=== PATIENT | female | born 1945 | race Caucasian/White ===

== ENCOUNTER 2023-11-24 07:48 | Outpatient (CLI) | payer MEDICARE, SELFPAY ==
--- NOTE | ~2023-11-24 | MR_ITS ---
EXAMINATION: MR lumbar spine wo con DATE: 11/24/2023 08:36 INDICATION: Spinal stenosis TECHNIQUE: Magnetic resonance imaging (MRI) of the lumbar spine was performed without intravenous con trast. Sequences included sagittal T2-weighted FSE, sagittal T2-weighted FS FSE, sagittal T1-weighted FSE, and axial T2-weighted FSE. COMPARISON: None FINDINGS: Alignment is normal. Vertebral body heights are normal. Heterogeneous red and yellow marrow signal th roughout the visualized bones. Severe disc height loss at L4-L5 and L5-S1. Moderate disc height loss at L2-L3, mild disc height loss at L3-L4 and disc desiccation without significant disc height loss at L2. The conus medullaris terminates at L1-L2. There is normal signal in the caudal spinal cord. Bila teral T2 hyperintense renal cysts the largest on the right measuring 5.3 cm. Paravertebral soft tissu es are unremarkable. The following disc levels are specifically discussed: T12-L1: The disc does not extend beyond the endplate margin. There is moderate bilateral facet joint osteoarthritis. There is no neural foraminal stenosis. There is no central canal stenosis. L1-L2: Disc is mildly bulging with superimposed annular fissure and small right paracentral disc extr usion with disc material extending 5 mm cephalad to the level of the inferior endplate of L1. There i s moderate bilateral facet joint osteoarthritis. There is minimal bilateral neural foraminal stenosis . There is mild central canal stenosis. L2-L3: Disc is bulging with annular fissure. There is hypertrophy of the ligamentum flavum. There is severe bilateral facet joint osteoarthritis. There is left and mild to moderate right neural foramin al stenosis. There is mild to moderate central canal stenosis. L3-L4: Disc is mildly bulging with superimposed annular fissure and left foraminal zone disc protrusi on. There is hypertrophy of the ligamentum flavum. There is severe bilateral facet joint osteoarthrit is. There is mild bilateral, left greater than right neural foraminal stenosis. There is mild central canal stenosis. L4-L5: Disc is bulging with superimposed annular fissure and moderate sized left paracentral disc ext rusion with disc material extending 3 to 4 mm cephalad and caudal to the level of the endplates and n arrowing the left lateral recess exerting mass effect upon the traversing left L5 nerve root. There i s moderate bilateral facet joint osteoarthritis. There is moderate bilateral nral foraminal stenosis. There is mild to moderate left-sided predominant central canal stenosis the disc extrusion narrowing the left lateral recess exerting mass effect upon the traversing left L5 nerve root. L5-S1: Annular fissure with moderate to large disc extrusion with disc material extending up to 6 mm cephalad to the level of the inferior endplate of L5 and extending from the right paracentral region to the left foraminal zone. There is moderate bilateral facet joint osteoarthritis. There is moderate left and mild right neural foraminal stenosis. There is mild central canal stenosis with narrowing o f the left lateral recess. IMPRESSION: 1. Severe lumbar spondylosis. Reviewed, dictated and finalized at location A.
== END 2023-11-24 07:49 | disposition home or self-care (01) ==
PROVIDERS: PCP Family Medicine; Visit Provider Family Medicine
DX: M43.06 Spondylolysis, lumbar region (principal)
CPT/HCPCS: 72148

== ENCOUNTER 2024-07-08 11:15 | Outpatient (CLI) | payer MEDICARE, SELFPAY ==
--- NOTE | ~2024-07-08 | XR_ITS ---
EXAMINATION: XR chest 2V DATE: 07/08/2024 13:14 INDICATION: Hypertension. Preop. Radiculopathy, lumbar region. TECHNIQUE: Frontal and lateral views of the chest were obtained. COMPARISON: None. FINDINGS: There is no pneumonia, pleural effusion, or pneumothorax. The heart size is normal. IMPRESSION: 1. No acute cardiopulmonary disease. Reviewed, dictated and finalized at location A. CONSULTANT
--- NOTE | 2024-07-08 12:03 | ECG_ITS ---
Test Date: 2024-07-08 12:20:11 Measurements Intervals [place] Rate: 64 P: 57 MN: 156 QRS: 32 QRSD: 90 T: 43 QT: 411 QTc: 427 Interpretive Statements SINUS RHYTHM BASELINE WANDER IN LEAD(S) I, III, aVL No previous ECG available for comparison Electronically Signed On 07-08-2024 14:08:29 DIESEL TRAILER MECHANIC by Bill Holden M.D.
--- OUTSIDE RECORDS SUMMARY | 2024-07-08 13:04 | XMS_ITS | Continuity of Care Document ---
Author Organization [facility] Address [address] [place] [address] Phone Care Team Providers Care Raised Printer Name Role Phone Jose Ayers MD Unavailable Unavailable Procedures Procedure Date INJ SPINE LUM/SAC W/ IMAGING GUIDANCE SURGICAL TRAY LOW OSMOLAR CONTRAST (200 TO 299 MG IODI NE) Injection, Triamcinolone Acetonide, 10mg INJ SPINE LUM/SAC W/ IMAGING GUIDANCE Id SURGICAL TRAY LOW OSMOLAR CONTRAST (200 TO 299 MG IODI NE) KENALOG 10 MG INJ SPINE LUM/SAC W/ IMAGING GUIDANCE Id SURGICAL TRAY LOW OSMOLAR CONTRAST (200 TO 299 MG IODI NE) KENALOG 10 MG Advance Directives Directive Yes / No Effective Date File Name No Information Encounters Encounter Description Practice Location Reason(s) For Visit Diagnoses Date Provider Providers Copied on Encounter [facility], [address], [place], [place], [address], [place] tel:[phone] [facility] No Information Andria Garcia. [address], [place], [place], [address], [place]. tel:[phone] Referring Provider: Mehdi Browning DO, [address], [place], [address]. tel:[phone] [facility], [address], [place], [place], [address], tel:[phone] [facility] No Information Jeffrey Garcia. [address], [place], [place], [address], . tel:[phone] Referring Provider: Mehdi Browning DO, [address], [place], [address]. tel:[phone] [facility], [address], [place], [place], [address], tel:[phone] [facility] No Information Nayeli Bhandari. [address], [place], [place], [address], . tel:[phone] Referring Provider: Mehdi Browning DO, [address], [place], [address]. tel:[phone] Family History Family Member Type Diagnosis Age At Onset No Information Payers Payer name Insurance type Covered democrat ID Patel brito(s) MEDICARE MB [id number] NAP Social History Type Description Quantity Date Captured [...]
--- OUTSIDE RECORDS SUMMARY | 2024-07-08 13:04 | XMS_ITS | Continuity of Care Document ---
Author Organization [facility] Address [address] [place] [address] Phone Care Team Providers Care Paper Cap Machine Operator Name Role Phone Mckeon OD, Jose Unavailable Unavailable Advance Directives Directive Yes / No Effective Date File Name No Information Encounters Encounter Description Practice Location Reason(s) For Visit Diagnoses Date Provider Providers Copied on Encounter [facility], [address], [place], [place], [address], [place] tel:[phone] [facility] No Information Apr-0 7-200 4 Mckeon OD Jose. [address] [facility] , [address], [place], [address], [place]. tel:[phone] Family History Family Member Type Diagnosis Age At Onset No Information Payers Payer name Insurance type Covered constitution party ID Authoriza tion(s) [employer] SOI CI [id number] Social History Type Description Quantity Date Captured [...]
[2024-07-08 13:18] LABS: Hematocrit 41.9 % (37.0-47.0); Hemoglobin 13.7 g/dL (12.0-15.0); Mean Corpuscular HGB Conc 32.7 g/dl (32-36); Mean Corpuscular Volume 97.9 fl (80-100); Platelet Count Result 232 k/mm3 (150-375); Red Blood Count 4.28 M/mm3 (4.2-5.4); Red Cell Distribution Width 13.4 % (11.5-14.5); White Blood Count 8.9 K/mm3 (4.5-10.0)
[2024-07-08 13:27] LABS: Prothrombin Time 13.4 Seconds (11.1-14.7)
[2024-07-08 13:28] LABS: Partial Thromboplastin Time 24.7 Seconds (22.3-36.8)
[2024-07-08 13:38] LABS: Add Urine Microscopic? YES; Appearance Urine Clear (Clear); Bacteria Urine None Seen /hpf; Bilirubin Urine Negative (Negative); Blood Urine Negative (Negative); Color Urine Yellow (Yellow); Glucose Urine UA Negative (Negative); Ketones Urine Negative (Negative); Leukocyte Esterase Ur 2+ LEU/UL (Negative); Need Manual Microscopic Reviewed; Nitrate Urine Negative (Negative); Protein Urine Trace mg/dL (Negative); RBC Urine 0-2 /hpf (0-2); Specific Grav Ur 1.017 (1.001-1.035); Squamous Epithelial Cell Urine None Seen /hpf (Few); Urobilinogen Urine 0.2 mg/dL (<2.0); pH Urine 5.5 (5.0-9.0)
[2024-07-08 13:52] LABS: Anion Gap 8 mmol/L (4-12); Blood Urea Nitrogen 17 mg/dL (7-17); Calcium 9.7 mg/dL (8.4-10.2); Carbon Dioxide 28 mmol/L (22-30); Chloride 105 mmol/L (98-107); Estimated Glomerular Filt Rate > 60; Glucose 104 mg/dL (65-110); Potassium 4.4 mmol/L (3.4-5.0); Sodium 141 mmol/L (137-145)
== END 2024-07-08 11:16 | disposition home or self-care (01) ==
PROVIDERS: PCP Family Medicine; Visit Provider Neurological Surgery
DX: Z01.818 Encounter for other preprocedural examination (principal); M54.16 Radiculopathy, lumbar region; I10 Essential (primary) hypertension
CPT/HCPCS: 36415; 71046; 80048; 81001; 85027; 85610; 85730; 87086; 93005

== ENCOUNTER 2024-07-14 00:33 | Day surgery (SDC) | payer MEDICARE, SELFPAY ==
[2024-07-08 11:27] VITALS: BP 137/72; PULSE 72; RESP 16; TEMP 36.9; O2SAT 99; BMI 25.9
--- NOTE | 2024-07-08 11:39 | PC.NURSE ---
Report to the Outpatient Waiting Room, entrance under the green pavilion located off [facility], at time __6:00AM on date ___07/14/24____. Planned Procedure Time: __7:30AM .? Time changes happen often and if your time is changed the preop area will call you the afternoon before. - You and your visitor will be asked to self-screen and do not enter if you have any COVID symptoms. Please call surgeon if you need to reschedule. - A mask is optional within the hospital at this time. Patients may have clear liquids (water, carbonated beverages, clear teas, apple juice) until 3 hours prior to surgery (4:30AM) with a maximum of 20 ounces. - No food from midnight until time of surgery and no smoking, or chewing tobacco (or any form of nicotine). No chewing gum, candy or mints. Take only the following medications with a SIP of water on the morning of surgery: ____ATENOLOL, SERTRALINE. ALPRAZOLAM NEEDED FOR ANXIETY DO NOT STOP ANY OF YOUR OTHER PRESCRIPTION MEDICATIONS PRIOR TO SURGERY EXCEPT THE FOLLOWING Medications to discontinue per physician HOLD NSAIDS(IBUPROFEN) 7 DAYS PRE-OP PER DR BARR Date to take last dose 07/14/24 Please no make-up, nail romansh, hairspray, perfume, deodorant, or body powder the day of surgery.? No jewelry (including any body piercings) or valuables the day of surgery, leave them at home.? Please take a shower or bath the night before, or the morning of, surgery with an antibacterial soap.? Wear comfortable, loose fitting clothing.? - Jewelry must be removed prior to entering the operating room.? Rings and piercings that are not removed may be cut off. - The hospital will not accept responsibility for valuables.? - Please leave all valuables, including medications, at home the day of surgery. If you are going home after surgery, a licensed local driver must drive you home.? - NO public transportation without another adult if you receive anesthesia. - We recommend that an adult stay with you for 24 hours following discharge. - We also recommend that you do not drive, make important decision, drink alcoholic beverages, or take any drugs that were not prescribed by your health care provider for at least 24 hours after your discharge time. Follow any additional instructions given to you from your surgeon. Telephone instructions given to ___PATIENT AND DAUGHTER and asked if any additional questions and then verbalized understanding. Patient advised to call surgeon office or pre surgery nurse liaison [phone] if any additional questions.
[2024-07-14] VITALS (9 sets, daily range): BP systolic 135–169; BP diastolic 53–81; PULSE 71–82; RESP 14–16; TEMP 36.1–36.3; O2SAT 96–100; BMI 25.8
--- NOTE | ~2024-07-14 | XR_ITS ---
INTRAOPERATIVE FLUOROSCOPY: CLINICAL HISTORY: 79 years old Female; LEFT L4-L5 MICRODISCECTOMY PROCEDURE COMMENTS: Limited intraoperative fluoroscopy of the lumbar spine was performed. CUMULATIVE DOSE: 3.95 mGy FLUOROSCOPY TIME: 5.4 seconds FINDINGS/IMPRESSION: Please refer to operative note for further details. Reviewed, dictated and finalized at location A.
--- OUTSIDE RECORDS SUMMARY | 2024-07-14 00:35 | XMS_ITS | Continuity of Care Document ---
Author Organization [facility] Address [address] [place] [address] Phone Care Team Providers Care Mill Supervisor Name Role Phone Mckeon OD, Jose Unavailable Unavailable Advance Directives Directive Yes / No Effective Date File Name No Information Encounters Encounter Description Practice Location Reason(s) For Visit Diagnoses Date Provider Providers Copied on Encounter [facility], [address], [place], [place], [address], [place] tel:[phone] SEC [facility] No Information Apr-0 7-200 4 Mckeon OD Jose. [address] [facility] , [address], [place], [address], [place]. tel:[phone] Family History Family Member Type Diagnosis Age At Onset No Information Payers Payer name Insurance type Covered alliance party ID Authoriza tion(s) [employer] SOI CI [id number] Social History Type Description Quantity Date Captured [...]
--- OUTSIDE RECORDS SUMMARY | 2024-07-14 00:35 | XMS_ITS | Continuity of Care Document ---
Author Organization [facility] Address [address] [place] [address] Phone Care Team Providers Care Dairy Farmworker Name Role Phone Jose Ayers MD Unavailable Unavailable Procedures Procedure Date INJ SPINE LUM/SAC W/ IMAGING GUIDANCE SURGICAL TRAY LOW OSMOLAR CONTRAST (200 TO 299 MG IODI NE) Injection, Triamcinolone Acetonide, 10mg INJ SPINE LUM/SAC W/ IMAGING GUIDANCE Ri SURGICAL TRAY LOW OSMOLAR CONTRAST (200 TO 299 MG IODI NE) KENALOG 10 MG INJ SPINE LUM/SAC W/ IMAGING GUIDANCE Ri SURGICAL TRAY LOW OSMOLAR CONTRAST (200 TO 299 MG IODI NE) KENALOG 10 MG Advance Directives Directive Yes / No Effective Date File Name No Information Encounters Encounter Description Practice Location Reason(s) For Visit Diagnoses Date Provider Providers Copied on Encounter [facility], [address], [place], [place], [address], [place] tel:[phone] [facility] No Information Andria Garcia. [address], [place], [place], [address], [place]. tel:[phone] Referring Provider: Mehdi Browning DO, [address], [place], [address]. tel:[phone] [facility], [address], [place], [place], [address], tel:[phone] [facility] No Information Jeffrey Garcia. [address], [place], [place], [address], . tel:[phone] Referring Provider: Mehdi Browning DO, [address], [place], [address]. tel:[phone] [facility], [address], [place], [place], [address], tel:[phone] [facility] No Information Nayeli Bhandari. [address], [place], [place], [address], . tel:[phone] Referring Provider: Mehdi Browning DO, [address], [place], [address]. tel:[phone] Family History Family Member Type Diagnosis Age At Onset No Information Payers Payer name Insurance type Covered constitution party ID Patel brito(s) MEDICARE MB [id number] NAP Social History Type Description Quantity Date [...]
--- NOTE | 2024-07-14 06:47 | P.PNAN_ITS ---
Anes - Initial Pre Proc Eval Procedure: Operation Date: 07/14/24 07:30 Proposed Procedures p Left L4-L5 Microdiscectomy - Bouchra Ramos MD Date/Time: 07/14/24 06:47 Surgeon: Bouchra Ramos MD Pre Op Diagnosis: left lumbar radiculopathy Patient Data Age: 79 Gender: F Height: 1.73 m Weight: 77.3 kg Last Vital Signs Temp 36.9 C 07/08/24 11:27 Pulse 72 07/08/24 11:27 Resp 16 07/08/24 11:27 BP 137/72 07/08/24 11:27 Pulse Ox 99 07/08/24 11:27 O2 Del Method Room Air 07/08/24 11:27 Allergies Allergy/AdvReac Type Severity Reaction Status Date / Time Sulfa (Sulfonamide Allergy Mild Rash Verified 07/08/24 11:24 Antibiotics) Home Medications ?Medication ?Instructions ?Recorded ?Confirmed ?Type simvastatin 10 mg tablet 10 mg PO DAILY #90 tabs 02/09/24 07/08/24 Rx sertraline 100 mg tablet 100 mg PO DAILY #90 tabs 02/11/24 07/08/24 Rx alprazolam 0.25 mg tablet 0.25 mg PO TID PRN anxiety #90 tabs 05/26/24 07/08/24 Rx atenolol 50 mg tablet See Rx Instructions .Route 06/29/24 07/08/24 Rx .COMPLEX #180 tabs ibuprofen 200 mg tablet (Advil) 400 mg PO Q6H PRN pain 07/08/24 07/08/24 History Patient hx anesthesia problems: none Family hx anesthesia problems: none Results Review: All pre-operative results and documents have been reviewed as part of the pre- operative evaluation. [facility] Past Medical History Medical History Diverticulosis of colon without hemorrhage Sciatica of left side Vaginal atrophy Elevated fasting blood sugar Abdominal adhesions Essential (primary) hypertension Mixed hyperlipidemia Anticipatory anxiety Anxiety Normal cystoscopy Occult blood in stools Panic attacks Hematuria Fibromyalgia Surgical History Surgical History History of cataract surgery History of appendectomy Hx of tonsillectomy History of bilateral tubal ligation H/O: hysterectomy Family History Family History Sibling Family history of kidney disease Hypertension Family history of elevated blood lipids Family history of cardiovascular disease Father Family history of cardiovascular disease Malignant neoplasm of prostate Family history of coronary artery disease Heart disease Mother Depression Sibling Cancer Heart disease Dementia Social History Social History Smoking status: Never smoker Alcohol intake: never Substance use: never Substance use type: does not use Do You Feel Safe in your Home?: Yes Lack of Transportation: No Lack of Food: Never True Current Housing: I Have Housing Concerned About Future Housing: No Difficulty Paying Gas/Electric Bills: No Difficulty Paying for Meds: No Currently Unemployed: No Education: Decline to Answer Difficulty w/ Childcare or Family Care: No Anes - Eval Final PreProcedure Day of Procedure 07/14/24 06:47 Patient weight: overweight Heart: regular rate and rhythm Lungs: clear to auscultation Airway: Mallampati scale class II Neurological: alert and oriented Last oral intake: >/= 8 hours ASA classification: III Emergent: no Anesthetic plan: proceed Anesthesia type and monitoring: general ETT and standard monitoring Results Review: All pre-operative results and documents have been reviewed as part of the pre- operative evaluation. Informed Consent: The patient's anesthetic plan and its attendant risks and benefits were discussed with the patient/family/POA. Questions were solicited and answers provided to the satisfaction of the patient/family/POA.
--- NOTE | 2024-07-14 07:16 | WPDHPUPDATE1 ---
History and Physical Update Update Date/Time: 07/14/24 07:16 History and Physical has been reviewed, including an updated exam of the patient. There are NO changes in the patient's condition. Risks, benefits, and alternatives have been discussed and questions answered. Patient agrees to proceed with procedure.
[2024-07-14] MEDS: ceFAZolin 2 GM/D5W 50 ML 2 GM/50 ML BAG IVPB (07:27)
[2024-07-14] MEDS: LACTATED RINGERS 1,000 ML 30 ML IV CONT ×2 (07:44→09:17)
[2024-07-14] MEDS: LIDO 1%/EPINEPHRINE 1:100,000 20 ML VIAL 10 ML INFILTRATE (08:01)
--- NOTE | 2024-07-14 09:26 | P.OP_ITS ---
Procedure Note - Detailed Date of Procedure 07/14/24 Pre-op Diagnosis left lumbar radiculopathy Post-op Diagnosis Same Procedure Performed 1. Left L4-5 microdiskectomy 2. Use of microscope for microsurgical dissection 3. Use of C-arm for fluoroscopy Surgeon Bouchra Ramos MD Financial Report Service Sales Agent Tatyana Anesthesia General Description of Procedure The patient was brought to the operating room, and general anesthesia was induced. The patient was placed prone on the Raymundo frame, and all pressure p oints were padded. Compression devices were placed on the patient's calves. The C-arm was brought onto the field to localize the appropriate disc space and assist with incisional planning. The area was prepped and draped in usual sterile fashion. A time out was conducted, and pre-operative antibiotics were administered. Local anesthesia was injected into the planned incision. A skin incision was made with a 10-blade scalpel, and dissection was carried down with the monopolar cautery to open the fascia. The left lamina of L4 was exposed with the bovie. An upgoing curette was placed under the lamina, and the C-arm was brought in to confirm the correct level. A self-retaining retractor was placed. The currette was used to clear the space under the lamina. A high- speed drill was used to thin the lamina to the ligamentum flavum. A currette was used to separate the lamina from the ligament, and more bone was removed with a kerrison. A 4-penfield was used to separate the dura from the disc space, and a calcified disc bulge was noted under the traversing nerve root. The dura was retracted medially, and a nerve hook was used to maguire the posterior longitudinal ligament to break up the disc herniation. A micropituitary was used to remove small pieces of calcified disc. A nerve hook and Reyes currette were alternately used to break up small pieces of calcified disc which were removed with a micropituitary. The ventral space under the nerve root appeared well decompressed. Hemostasis was achieved with the bovie, Surgiflo, and cottonoid patties. The area was copiously irrigated. No evidence of CSF leak was noted. The fascia was closed with 0-Vicryl in an interrupted fashion. The soft tissue was again copiously irrigated. The dermis was closed with 2-0 interrupted Vicryl. The skin was closed with 3-0 Vicryl then subcuticular monocryl. Dermabond was placed over the incision. The patient was returned supine on the stretcher, extubated, and transferred to PACU without incident. Billing codes: 25534, 05049 Estimated Blood Loss 10 Drains No Packing No Pathology None sent Complications None Condition Stable Disposition PACU [facility] Billing Surgery - Charge Forward: Surgery Billing
--- NOTE | 2024-07-14 09:36 | SUR.PHASEI ---
0935 - dr. hudson at bedside. assessing pt's neuro assessment. neuro assessment wnl
== END 2024-07-14 11:21 | disposition home or self-care (01) ==
PROVIDERS: PCP Family Medicine; Visit Provider Neurological Surgery
PROC: (CPT 63005; principal; 2024-07-14 07:30)
DX: M54.16 Radiculopathy, lumbar region (principal); I10 Essential (primary) hypertension; E78.2 Mixed hyperlipidemia; F41.9 Anxiety disorder, unspecified; F41.0 Panic disorder [episodic paroxysmal anxiety]; Z79.1 Long term (current) use of non-steroidal anti-inflammatories (NSAID); Z98.890 Other specified postprocedural states; Z98.51 Tubal ligation status; Z87.19 Personal history of other diseases of the digestive system; Z80.42 Family history of malignant neoplasm of prostate; Z82.49 Family history of ischemic heart disease and other diseases of the circulatory system
CPT/HCPCS: 63030; 99199; J0690; J1100; J1171; J2003; J2004; J2371; J2405; J2704; J3010; J7120

== ENCOUNTER 2024-12-30 09:58 | Outpatient (CLI) | payer MEDICARE, SELFPAY ==
[2024-12-30 11:06] LABS: Hematocrit 42.0 % (37.0-47.0); Hemoglobin 13.9 g/dL (12.0-15.0); Immature Granulocyte Percent A 0.4 % (0-0.5); Lymphocytes Absolute Auto 2.98 K/mm3 (0.9-3.2); Mean Corpuscular HGB Conc 33.1 g/dl (32-36); Mean Corpuscular Hemoglobin 31.2 pg (26-34); Mean Corpuscular Volume 94.4 fl (80-100); Nucleated Red Blood Cells Absolute Auto 0.000 K/mm3 (0.0-0.012); Nucleated Red Blood Cells Perc 0.0 % (0.0-0.2); Platelet Count Result 222 k/mm3 (150-375); Red Blood Count 4.45 M/mm3 (4.2-5.4); White Blood Count 8.3 K/mm3 (4.5-10.0)
[2024-12-30 11:20] LABS: Hemoglobin A1C 5.5 % (<5.7)
[2024-12-30 11:21] LABS: INR 1.0; Prothrombin Time 13.2 Seconds (11.1-14.7)
[2024-12-30 11:22] LABS: Partial Thromboplastin Time 26.1 Seconds (22.3-36.8)
[2024-12-30 11:31] LABS: Albumin Level 4.2 g/dL (3.5-5.1); Anion Gap 7 mmol/L (4-12); Blood Urea Nitrogen 21 mg/dL (7-17); Calcium 10.0 mg/dL (8.4-10.2); Carbon Dioxide 28 mmol/L (22-30); Chloride 105 mmol/L (98-107); Estimated Glomerular Filt Rate 54; Glucose 86 mg/dL (65-110); Potassium 4.4 mmol/L (3.4-5.0); Sodium 140 mmol/L (137-145)
== END 2024-12-30 09:59 | disposition home or self-care (01) ==
PROVIDERS: Anesthesiology; PCP Family Medicine; Visit Provider Orthopaedic Surgery
DX: M16.12 Unilateral primary osteoarthritis, left hip (principal); N18.9 Chronic kidney disease, unspecified; Z01.818 Encounter for other preprocedural examination
CPT/HCPCS: 36415; 80048; 80307; 82040; 83036; 85025; 85610; 85730; 87081

== ENCOUNTER 2025-01-17 01:17 | Day surgery (SDC) | payer MEDICARE, MEDICAID, SELFPAY ==
[2024-12-30 10:13] VITALS: BP 136/68; PULSE 68; RESP 16; TEMP 36.7; O2SAT 98; BMI 25.4
--- NOTE | 2024-12-30 10:31 | PC.NURSE ---
Report to the Outpatient Waiting Room, entrance under the green pavilion located off [facility], at time __06:00am on date _01/17/25 . Planned Procedure Time: _0730am .? Time changes happen often and if your time is changed the preop area will call you the afternoon before. - You and your visitor will be asked to self-screen and do not enter if you have any COVID symptoms. Please call surgeon if you need to reschedule. - A mask is optional within the hospital at this time. Patients may have clear liquids (water, carbonated beverages, clear teas, apple juice) until 3 hours prior to surgery with a maximum of 20 ounces. - No food from midnight until time of surgery and no smoking, or chewing tobacco (or any form of nicotine). No chewing gum, candy or mints. (04:30am) Take only the following medications with a SIP of water on the morning of surgery: ____Altenolol and Sertraline Tyelenol if needed DO NOT STOP ANY OF YOUR OTHER PRESCRIPTION MEDICATIONS PRIOR TO SURGERY EXCEPT THE FOLLOWING Hold all vitamins and supplements for 3 days per anesthesiologist. Medications to discontinue per physician NONE Date to take last dose NONE Please no make-up, nail cymro, hairspray, perfume, deodorant, or body powder the day of surgery.? No jewelry (including any body piercings) or valuables the day of surgery, leave them at home.? Please take a shower or bath the night before, or the morning of, surgery with an antibacterial soap.? Wear comfortable, loose fitting clothing. HIBICLEANSE scrub per Dr Logan. ? Children are encouraged to wear pajamas. - Jewelry must be removed prior to entering the operating room.? Rings and piercings that are not removed may be cut off. - The hospital will not accept responsibility for valuables.? - Please leave all valuables, including medications, at home the day of surgery. If you are going home after surgery, a licensed dump truck driver must drive you home.? - NO public transportation without another adult if you receive anesthesia. - We recommend that an adult stay with you for 24 hours following discharge. - We also recommend that you do not drive, make important decision, drink alcoholic beverages, or take any drugs that were not prescribed by your health care provider for at least 24 hours after your discharge time. Follow any additional instructions given to you from your surgeon. Telephone instructions given to ___Patient and asked if any additional questions and then verbalized understanding. Patient advised to call surgeon office or pre surgery nurse liaison [phone] if any additional questions.
--- NOTE | 2025-01-16 19:36 | P.HP_ITS ---
H&P: HPI History of Present Illness Date/Time: 01/16/25 19:36 Chief Complaint: left hip pain due to severe advanced osteoarthritis Narrative: patient presents for left total hip replacement. I reviewed her medications and reminded her she will need to stop the ibuprofen 7 days before surgery. She does have a prescription for alprazolam but has not taken long time I recommend that she avoid this and I discussed with her that we will not want her to take that after surgery because when combined with a narcotic it can depress breathing and cause overdose and . Physical examination On examination today she is a very pleasant female in no acute distress. She is younger in appearance than her stated age. Her BMI is 25.9. She walks with a moderate limp without her cane a mild limp with her cane. Patient is able to walk on her toes and heels with some assistance for balance. Walking a few steps in the office today she did not have significant pain. patient is here with her daughter today. She had strong 2+ knee jerk reflexes bilaterally and ankle jerk reflexes bilaterally and 1 beat of ankle clonus bilaterally. She has dependent rubor in both legs but has 2+ dorsalis pedis and posterior tibial artery pulses palpable on the left. She had 5 5 muscle strength in all muscle groups of the left lower extremity except mild weakness in abduction of the left hip in the side-lying position which was associated with moderate pain. She had normal light touch sensation in the left lower extremity including the great toe. There is no lower extremity edema and the skin looked healthy in the lower extremity and around the hip and groin area. There was however a 6 mm diameter eschar mid anterior left lea from where she sustained an abrasion a few weeks ago. Flexion of the left hip is to 95? with moderate thigh pain internal rotation left hip 20? with moderate thigh pain external rotation 35? with moderate thigh pain. Stinchfield maneuver exhibited moderate thigh pain. Her greater trochanter was nontender. She had moderate tenderness in the cheek of buttock and over the posterior superior iliac spine SI joint area. While lying supine the left leg appears about half an inch shorter than the right. Her previous x-rays again show advanced osteoarthritis left hip. She has moderately severe joint space narrowing of the right hip but her right hip fortunately is not bothering her. Patient has reviewed the Ortho info handout on total hip replacement as well as the direct anterior approach booklet. I discussed postoperative recovery with her in detail. I have discussed risks of surgery with her in detail. She states that her teeth are stable and she does not have any pending dental work that needs to be done or infections around her teeth. She has no history of blood clots personally or in her family. I explained that there will be numbness around the incision. We discussed the risk of infection and my recommendation that she take antibiotics before dental work for at least the next 2 years and then as needed if any invasive dental work were necessary or if she developed infection somewhere else. Risk of blood clots was explained. I discussed my preference for using Eliquis for 5 weeks after surgery. Risk of fracture dislocation leg length discrepancy component wear need for revision surgery discussed. Risk of transfusion discussed. Risk of heterotopic ossification was explained. She has history of allergy to sulfa antibiotics so we would use 7.5 mg meloxicam for 10 days after surgery to help minimize risk of heterotopic ossification forming. Risk of nerve injury explained. Risk of medical complications such as heart attack stroke pulmonary embolism and were reviewed. All of their questions were answered. FORMERLY [facility], [facility] Past Medical History Medical History Diverticulosis of colon without hemorrhage Sciatica of left side Vaginal atrophy Elevated fasting blood sugar Abdominal adhesions Essential (primary) hypertension Mixed hyperlipidemia Anticipatory anxiety Anxiety Normal cystoscopy Occult blood in stools Panic attacks Hematuria Fibromyalgia Surgical History Surgical History History of microdiscectomy History of cataract surgery History of appendectomy Hx of tonsillectomy History of bilateral tubal ligation H/O: hysterectomy Family History Family History Sibling Family history of kidney disease Hypertension Family history of elevated blood lipids Family history of cardiovascular disease Father Family history of cardiovascular disease Malignant neoplasm of prostate Family history of coronary artery disease Heart disease Mother Depression Sibling Cancer Heart disease Dementia Social History Social History Smoking status: Never smoker Second hand tobacco smoke exposure: Yes Alcohol intake: never Substance use: never Substance use type: does not use Do You Feel Safe in your Home?: Yes Lack of Transportation: No Lack of Food: Never True Current Housing: I Have Housing Concerned About Future Housing: No Difficulty Paying Gas/Electric Bills: No Difficulty Paying for Meds: No Currently Unemployed: No Education: Decline to Answer Difficulty w/ Childcare or Family Care: No Living arrangements: with family Additional living arrangements comments: Daughter Spiritual care concerns: No Meds Home Medications and Allergies Home Medications ?Medication ?Instructions ?Recorded ?Confirmed ?Type simvastatin 10 mg tablet 10 mg PO DAILY #90 tabs 10/0 11/2512/30/24 Rx alprazolam 0.25 mg tablet 0.25 mg PO TID PRN anxiety # 90 tabs 05/26/24 12/30/24 Rx sertraline 100 mg tablet 100 mg PO DAILY #90 tabs 12/30/24 Rx atenolol 50 mg tablet See Rx Instructions .Route 0 12/15/24 12/30/24 Rx .COMPLEX #180 tabs Allergies Allergy/AdvReac Type Severity Reaction Status Date / Time Sulfa (Sulfonamide Allergy Mild Rash Verified 12/30/24 10:11 Antibiotics) Assessment and Plan Assessment and plan (1) Primary osteoarthritis of left hip: Code(s): M16.12 - Unilateral primary osteoarthritis, left hip Status: Acute
[2025-01-17] VITALS (14 sets, daily range): BP systolic 93–181; BP diastolic 41–93; PULSE 63–91; RESP 13–25; TEMP 35.7–36.9; O2SAT 97–100
--- NOTE | ~2025-01-17 | XR_ITS ---
EXAMINATION: XR surgery orthopedic DATE: 01/17/2025 11:13 INDICATION: Anterior approach left total hip arthroplasty TECHNIQUE: Single frontal fluoroscopic image of the left hip was obtained during procedure performed by Dr. Logan. Radiologist was not present for the imaging or procedure. The amount of fluoroscopy time used during this procedure was 0.9 minutes. Total DAP was 0.287 mGym^2. COMPARISON: None. FINDINGS: Noncemented left total hip arthroplasty which appears well seated in near- anatomic alignment. No fracture. Lucent soft tissue gas about the left hip. IMPRESSION: 1. Fluoroscopy utilized during left total hip arthroplasty which appears well seated in near-anatomic alignment. Reviewed, dictated and finalized at location A. IMPRESSION: 1. Fluoroscopy utilized during left total hip arthroplasty which appears well s eated in near-anatomic alignment.
--- NOTE | ~2025-01-17 | XR_ITS ---
EXAM/ PROCEDURE: XR hip LT 1V w AP pelvis - 01/17/2025 11:20 CDT HISTORY: 79 years old Female with POST OP LEFT RONAN ANTERIOR APPROACH COMPARISON: None available TECHNIQUE: Two view(s) FINDINGS/ IMPRESSION: There are no fractures or dislocations.Joint space narrowing, subchondral sclerosis, subchondral cyst formation and osteophyte formation, compatible with moderate osteoarthritis. Left hip arthroplasty. Intact hardware and no loosening. Reviewed, dictated and finalized at location N.
[2025-01-17] MEDS: ACETAMINOPHEN 500 MG TABLET 1000 MG PO (06:45)
[2025-01-17] MEDS: LACTATED RINGERS 1,000 ML 30 ML IV CONT ×3 (06:50→11:32)
[2025-01-17] MEDS: TRANEXAMIC ACID 1,000MG/ISO100 1,000 MG/100 ML BAG 200 MG IVPB (06:55)
[2025-01-17] MEDS: VANCOMYCIN 1,250 MG/NS 250 ML 1,250 MG/250 ML BAG 166.67 MG IVPB (06:57)
--- NOTE | 2025-01-17 07:05 | P.PNAN_ITS ---
Anes - Initial Pre Proc Eval Procedure: Operation Date: 01/17/25 07:30 Proposed Procedures p Left Total Hip Arthroplasty, Anterior Approach - Zion Logan MD Date/Time: 01/17/25 07:05 Surgeon: Zion Logan MD Pre Op Diagnosis: Arthritis Left Hip Patient Data Age: 79 Gender: F Height: 1.73 m Weight: 76 kg Last Vital Signs Temp 36.7 C 12/30/24 10:13 Pulse 68 12/30/24 10:13 Resp 16 12/30/24 10:13 BP 136/68 12/30/24 10:13 Pulse Ox 98 12/30/24 10:13 O2 Del Method Room Air 12/30/24 10:13 Allergies Allergy/AdvReac Type Severity Reaction Status Date / Time Sulfa (Sulfonamide Allergy Mild Rash Verified 01/17/25 07:05 Antibiotics) Home Medications ?Medication ?Instructions ?Recorded ?Confirmed ?Type simvastatin 10 mg tablet 10 mg PO DAILY #90 tabs 10/0 11/2512/30/24 Rx alprazolam 0.25 mg tablet 0.25 mg PO TID PRN anxiety # 90 tabs 05/26/24 12/30/24 Rx sertraline 100 mg tablet 100 mg PO DAILY #90 tabs 12/30/24 Rx atenolol 50 mg tablet See Rx Instructions .Route 0 12/15/24 12/30/24 Rx .COMPLEX #180 tabs Laboratory Tests 01/17/25 06:54 Blood Type Pending Antibody Screen Pending Patient hx anesthesia problems: none Family hx anesthesia problems: none Results Review: All pre-operative results and documents have been reviewed as part of the pre- operative evaluation. [facility] Past Medical History Medical History Diverticulosis of colon without hemorrhage Sciatica of left side Vaginal atrophy Elevated fasting blood sugar Abdominal adhesions Essential (primary) hypertension Mixed hyperlipidemia Anticipatory anxiety Anxiety Normal cystoscopy Occult blood in stools Panic attacks Hematuria Fibromyalgia Surgical History Surgical History History of microdiscectomy History of cataract surgery History of appendectomy Hx of tonsillectomy History of bilateral tubal ligation H/O: hysterectomy Family History Family History Sibling Family history of kidney disease Hypertension Family history of elevated blood lipids Family history of cardiovascular disease Father Family history of cardiovascular disease Malignant neoplasm of prostate Family history of coronary artery disease Heart disease Mother Depression Sibling Cancer Heart disease Dementia Social History Social History Smoking status: Never smoker Alcohol intake: never Substance use: never Substance use type: does not use Do You Feel Safe in your Home?: Yes Lack of Transportation: No Lack of Food: Never True Current Housing: I Have Housing Concerned About Future Housing: No Difficulty Paying Gas/Electric Bills: No Difficulty Paying for Meds: No Currently Unemployed: No Education: Decline to Answer Difficulty w/ Childcare or Family Care: No Living arrangements: with family Additional living arrangements comments: DAUGHTER-AMIE Spiritual care concerns: No Anes - Eval Final PreProcedure Day of Procedure 01/17/25 07:05 Patient weight: normal Heart: regular rate and rhythm Lungs: clear to auscultation Airway: Mallampati scale class II Neurological: alert and oriented Last oral intake: >/= 8 hours ASA classification: III Emergent: no Anesthetic plan: proceed Anesthesia type and monitoring: general ETT and standard monitoring Results Review: All pre-operative results and documents have been reviewed as part of the pre- operative evaluation. Informed Consent: The patient's anesthetic plan and its attendant risks and benefits were discussed with the patient/family/POA. Questions were solicited and answers provided to the satisfaction of the patient/family/POA.
--- NOTE | 2025-01-17 07:16 | WPDHPUPDATE1 ---
History and Physical Update Update Date/Time: 01/17/25 07:16 History and Physical has been reviewed, including an updated exam of the patient. There are NO changes in the patient's condition. Risks, benefits, and alternatives have been discussed and questions answered. Patient agrees to proceed with procedure.
[2025-01-17] MEDS: ceFAZolin 2 GM in SODIUM CHLORIDE 0.9% IV 50 ML 100 ML IVPB ×3 (07:30→21:41)
[2025-01-17] MEDS: SODIUM CHLORIDE 0.9% IV 37.7 ML, MORPHINE SULFATE INJ (*CRX) 2 MG, ROPivacaine HCL 1% 2... INFILTRATE (08:21)
[2025-01-17] MEDS: TRANEXAMIC ACID 1,000 MG/10 ML AMPUL 1000 MG IV PUSH (10:20)
--- NOTE | 2025-01-17 11:03 | W.PM.PROC2 ---
Procedure Note - Detailed Date of Procedure 01/17/25 Pre-op Diagnosis Arthritis Left Hip Post-op Diagnosis Same Procedure Performed Left total hip replacement Surgeon Zion Logan MD Tile Trimmer Armaan Little Anesthesia General Description of Procedure Patient was brought to the operating room and general anesthesia was administered. She received 2 g of Ancef weight based vancomycin 1 g of TXA preoperatively. Boots were applied to the feet after padding was applied the feet and SCDs applied the calves and running during the procedure. Briseno catheter was placed. She was transferred to the [facility] and the left hip was prepped draped usual fashion. A 10 cm longitudinal incision was made starting 3 cm lateral 1 cm distal to the ASIS. Dissection was carried down to the fascia over the tensor fascia lisset which was exposed and longitudinally incised. Interval between TFL and rectus femoris developed and crossing branches of ascending lateral femoral circumflex vessels were ligated with suture divided. Inverted T capsulotomy was performed. Femoral neck osteotomy performed according to preoperative templating. Femoral head was removed. It measured 51 mm in diameter peripherally. There were large surrounding femoral osteophytes. Acetabulum was exposed. Fractured posterior superior and posterior femoral osteophytes were removed. Large anterior superior osteophyte remained and was partially trimmed. He under fluoroscopic guidance the acetabulum was prepared. We reamed with the 44 mm Reamer to close the medial wall of the acetabulum. Reaming went up to 51 mm which gave appropriate peripheral contact. A light reaming with the 52 Reamer was performed and we chose the 52 pinnacle cup which was impacted at 40? of abduction and the appropriate anteversion. Full seating was achieved with excellent Press-Fit single screw placed in the ilium. Thirty-six inner diameter liner was placed. Bone quality seemed very good. Additional anterior and anterior superior and posterior inferior osteophyte were removed. Table hook was placed and the leg externally rotated and extended exposing the proximal femur. The interval between conjoined tendon and piriformis was incised which allowed the piriformis to flip. It the femur was broached to a size 7 Actis broach which achieved torsional stability. Trialing was performed. We could only reduce the hip with a -2 head. It was tight with no Shuck whatsoever was difficult to dislocate again with the bone hook. Intraoperative x-ray showed that with this construct we were still about 2- 3 mm shorter than the other side. We confirmed that complete anterior capsular release had been performed for the femur. I felt this construct with BM comfort tight for her. We countersunk the broach another 2.5 mm with this we had a little bit of play in shock in a more appropriate feel. We confirmed that the broach had torsional stability we calcar planed and impacted the size 7 Actis standard offset stem. On trialing the 1.5 was too tight the size -2 head had appropriate soft tissue tension and excellent stability. The-2 x 36 mm cobalt chromium stainless steel head was impacted on the clean and dried trunnion without difficulty. The hip was reduced and stability reconfirmed. Intraoperative x-ray under fluoro showed no radiographic complication. The capsule was reapproximated with 2. Vicryl. Local anesthetic cocktail was injected in the periarticular soft tissues. She received additional 2 g of Ancef and 1 g of TXA. Fascia was reapproximated with running 1. Vicryl drain placed deep in the subcutaneous layer the skin closed with 2 subcutaneous Vicryl and glue. EBL was 500 cc and she received 225 back as Cell Saver blood. During the procedure there was a fair amount of bleeding from the acetabular bone which stopped after placement of the polyethylene liner wound was quite dry time wound closure. Bone quality seemed very good in the femur we will allow her to be weight-bearing as tolerated postoperatively.
[2025-01-17] MEDS: ONDANSETRON INJ 4 MG/2 ML VIAL IV PUSH ×2 (11:32→14:28)
--- NOTE | 2025-01-17 12:58 | ADMGEN ---
This patient, Halima Degroot, was admitted to 3 [facility] Surg Room 315-01. Patient/family oriented to hospital policies and general routines including ID bracelet, bed and alarms, visiting hours, pain management, procedures, bathroom and other care routines, personal items, smoking policy, room service/diet, and visiting hours. Information on how to activate the Rapid Response Team has been discussed. Patient/Family are encouraged to report perceived risks to care and to ask questions if they do not understand what they are told or what they should do.
[2025-01-17] MEDS: SODIUM CHLORIDE 0.9% IV 1,000 ML 125 ML IV CONT (14:59)
[2025-01-17] MEDS: ACETAMINOPHEN 325 MG TABLET 650 MG PO ×2 (15:10→18:58)
[2025-01-17] MEDS: oxyCODONE HCL (*CRX) 2.5 MG TAB IR PO (15:10)
--- NOTE | 2025-01-17 15:13 | P.CONIM_ITS ---
Assessment and Plan Assessment and plan (1) Primary osteoarthritis of left hip: Code(s): M16.12 - Unilateral primary osteoarthritis, left hip Status: Acute Assessment and Plan: Left total hip by Orthopedics on 01/17/2025 Pain management by Orthopedics Brian Postsixto antibiotics (2) Essential (primary) hypertension: Code(s): I10 - Essential (primary) hypertension Status: Acute Assessment and Plan: Hydralazine and labetalol p.r.n. (3) Mixed hyperlipidemia: Code(s): E78.2 - Mixed hyperlipidemia Status: Acute Assessment and Plan: Continue statin (4) Anxiety: Code(s): F41.9 - Anxiety disorder, unspecified Status: Acute Assessment and Plan: Xanax held by Orthopedics HPI Date of Consult Consult date: 01/17/25 Requesting Physician: Zion Logan MD Primary Care Provider: Mehdi Garcia MD Consult Narrative Reason for consult: Medical management Narrative: Halima Degroot is a 79 year old female past medical history fibromyalgia, anxiety, hypertension and hyperlipidemia left hip osteoarthritis presents the hospital for planned total left hip replacement by Orthopedics. Patient seen after OR. Patient states that she a little bit of postop nausea and vomiting however that has resolved since then. Patient has been upset bathroom. And pain is well controlled. Patient has no complaints at this time. Review of Systems Review of Systems: 12 systems were reviewed and are negativ e except for as per HPI. PMFSH Past Medical History Medical History (Updated 01/17/25 @ 18:43 by Vanessa Guzmán, ASH) Diverticulosis of colon without hemorrhage Sciatica of left side Vaginal atrophy Elevated fasting blood sugar Abdominal adhesions Essential (primary) hypertension Mixed hyperlipidemia Anticipatory anxiety Anxiety Normal cystoscopy Occult blood in stools Panic attacks Hematuria Fibromyalgia Surgical History Surgical History History of microdiscectomy History of cataract surgery History of appendectomy Hx of tonsillectomy History of bilateral tubal ligation H/O: hysterectomy Family History Family History Sibling Family history of kidney disease Hypertension Family history of elevated blood lipids Family history of cardiovascular disease Father Family history of cardiovascular disease Malignant neoplasm of prostate Family history of coronary artery disease Heart disease Mother Depression Sibling Cancer Heart disease Dementia Social History Social History Smoking status: Never smoker Second hand tobacco smoke exposure: Yes Alcohol intake: never Substance use: never Substance use type: does not use Do You Feel Safe in your Home?: Yes Lack of Transportation: No Lack of Food: Never True Current Housing: I Have Housing Concerned About Future Housing: No Difficulty Paying Gas/Electric Bills: No Difficulty Paying for Meds: No Currently Unemployed: No Education: Decline to Answer Difficulty w/ Childcare or Family Care: No Living arrangements: with family Additional living arrangements comments: DAUGHTER-AMIE Spiritual care concerns: No Meds Home Medications and Allergies Home Medications ?Medication ?Instructions ?Recorded ?Confirmed ?Type simvastatin 10 mg tablet 10 mg PO DAILY #90 tabs 10/0 11/2501/17/25 Rx alprazolam 0.25 mg tablet 0.25 mg PO TID PRN anxiety # 90 tabs 05/26/24 12/30/24 Rx sertraline 100 mg tablet 100 mg PO DAILY #90 tabs 01/17/25 Rx atenolol 50 mg tablet See Rx Instructions .Route 0 12/15/24 01/17/25 Rx .COMPLEX #180 tabs Allergies Allergy/AdvReac Type Severity Reaction Status Date / Time Sulfa (Sulfonamide Allergy Mild Rash Verified 01/17/25 07:05 Antibiotics) Vital Signs Vital Signs - 24 hr 01/17/25 06:15 01/17/25 11:04 01/17/25 11:15 Temperature 97.3 F L 97.1 F L Pulse Rate 85 80 76 Respiratory Rate 18 25 H 16 Blood Pressure 177/93 H 181/88 H 180/84 H Pulse Oximetry 98 100 100 Oxygen Delivery Room Air Simple Face Mask Simple Face Mask Oxygen Flow Rate 8 8 01/17/25 11:30 01/17/25 11:45 01/17/25 12:00 Temperature Pulse Rate 74 91 83 Respiratory Rate 14 18 17 Blood Pressure 175/79 H 181/87 H 172/72 H Pulse Oximetry 100 100 97 Oxygen Delivery Simple Face Mask Room Air Room Air Oxygen Flow Rate 8 01/17/25 12:01 01/17/25 12:15 01/17/25 13:05 Temperature 96.3 F L Pulse Rate 82 80 73 Respiratory Rate 13 16 Blood Pressure 140/69 121/52 L Pulse Oximetry 98 97 Oxygen Delivery Room Air Oxygen Flow Rate 01/17/25 13:20 01/17/25 13:50 01/17/25 14:08 Temperature 96.4 F L 96.9 F L Pulse Rate 73 63 Respiratory Rate 16 18 Blood Pressure 104/49 L 113/50 L Pulse Oximetry 99 98 Oxygen Delivery Room Air Oxygen Flow Rate 01/17/25 14:38 01/17/25 14:50 Temperature 97.7 F Pulse Rate 73 Respiratory Rate 18 Blood Pressure 93/56 L Pulse Oximetry 97 Oxygen Delivery Room Air Oxygen Flow Rate Exam Narrative: General: well appearing, appears stated age. HEENT: normocephalic, atraumatic. Mucous membranes moist. EOMI, PERRLA, bilateral sclera anicteric, no conjunctival injection. Neck supple without JVD, lymphadenopathy, or bruit. Respiratory: clear to ascultation bilaterally. No rales/rhonic/wheezes. Cardiovascular: Regular rate and rhythm, normal S1-S2 upon ascultation. No murmurs, rubs, or clicks. PMI is nondisplaced, capillary refill less than 3 second. Abdomen: Soft, round, no pulsatile masses, nondistended and nontender. No rebound, no guarding. No CVA tenderness, no hepatosplenomegaly. Bowel sounds present to all four quadrants. No high pitch or tinkling sounds, resonant to percussion. Extremities: No cyanosis, clubbing, or edema present. Pulses are palpable 2/2. Left hip dressing clean dry intact Neuro: Alert and orientated x 4. PERRLA. Cranial nerves 2-12 intact without focal deficit. Skin: Warm, dry, and intact, without rash, erythema, or lesion. Psych: pleasant, cooperative, normal speech, normal affect, no hallucinations, no dysarthia Quality VTE Prophylaxis VTE prophylaxis: mechanical ordered and pharmacologic ordered Hospitalist [facility] Advance Care Plan I have confirmed that the patient's Advanced Care Plan is present, code status is documented, or surrogate decision maker is listed in patient medical record.: Yes Medication Reconciliation I have utilized all available resources to obtain, update and review the patients current medications (includes all prescriptions, OTC, herbals, cannabis, and nutritional supplements).: Yes
[2025-01-17] MEDS: IBUPROFEN IV 400 MG in SODIUM CHLORIDE 0.9% IV 100 ML 208 MG IVPB (17:22)
[2025-01-17] MEDS: SENNA/DOCUSATE SODIUM TABLET 2 TAB PO (17:36)
[2025-01-17] MEDS: VANCOMYCIN HCL 1,000 MG in SODIUM CHLORIDE 0.9% IV 250 ML 250 MG IVPB (18:56)
[2025-01-17] MEDS: MICONAZOLE NITRATE 2% CREAM 30 GM TUBE 1 APPLIC TOPICAL (20:01)
[2025-01-17] MEDS: DOXYCYCLINE HYCLATE 100 MG TABLET PO (20:01)
[2025-01-17] MEDS: MORPHINE SULFATE (*CRX) 2 MG/ML INJ IV PUSH (23:41)
[2025-01-18 01:21] VITALS: BP 123/49; PULSE 87; RESP 16; TEMP 36.6; O2SAT 97
[2025-01-18] MEDS: ACETAMINOPHEN 325 MG TABLET 650 MG PO ×3 (04:49→12:59)
[2025-01-18 04:54] VITALS: BP 137/57; PULSE 91; RESP 16; TEMP 36.8; O2SAT 95
[2025-01-18] MEDS: ceFAZolin 2 GM in SODIUM CHLORIDE 0.9% IV 50 ML 100 ML IVPB (05:00)
[2025-01-18 05:44] LABS: Hematocrit 30.7 % (37.0-47.0); Hemoglobin 9.8 g/dL (12.0-15.0); Immature Granulocyte Percent A 0.6 % (0-0.5); Lymphocytes Absolute Auto 2.65 K/mm3 (0.9-3.2); Mean Corpuscular HGB Conc 31.9 g/dl (32-36); Mean Corpuscular Hemoglobin 30.9 pg (26-34); Mean Corpuscular Volume 96.8 fl (80-100); Nucleated Red Blood Cells Absolute Auto 0.000 K/mm3 (0.0-0.012); Nucleated Red Blood Cells Perc 0.0 % (0.0-0.2); Platelet Count Result 175 k/mm3 (150-375); Red Blood Count 3.17 M/mm3 (4.2-5.4); White Blood Count 14.3 K/mm3 (4.5-10.0)
[2025-01-18] MEDS: oxyCODONE HCL (*CRX) 2.5 MG TAB IR PO ×3 (05:50→12:59)
[2025-01-18 06:06] LABS: Anion Gap 6 mmol/L (4-12); Blood Urea Nitrogen 22 mg/dL (7-17); Calcium 8.9 mg/dL (8.4-10.2); Carbon Dioxide 23 mmol/L (22-30); Chloride 106 mmol/L (98-107); Estimated CRCL calculation 39 ml/min; Estimated Glomerular Filt Rate 50; Glucose 99 mg/dL (65-110); Potassium 4.4 mmol/L (3.4-5.0); Sodium 135 mmol/L (137-145)
[2025-01-18] MEDS: VANCOMYCIN HCL 1,000 MG in SODIUM CHLORIDE 0.9% IV 250 ML 250 MG IVPB (06:20)
[2025-01-18 09:25] VITALS: PULSE 98
[2025-01-18] MEDS: SENNA/DOCUSATE SODIUM TABLET 2 TAB PO (09:25)
[2025-01-18] MEDS: DOXYCYCLINE HYCLATE 100 MG TABLET PO (09:26)
[2025-01-18] MEDS: MELOXICAM 7.5 MG TABLET PO (09:26)
[2025-01-18] MEDS: APIXABAN 2.5 MG TABLET PO (09:26)
[2025-01-18] MEDS: SERTRALINE HCL 50 MG TABLET 100 MG PO (09:26)
[2025-01-18] MEDS: SIMVASTATIN 10 MG TABLET PO (09:26)
[2025-01-18 09:30] VITALS: PULSE 98; O2SAT 96
[2025-01-18] MEDS: dexAMETHasone SOD PHOS INJ 10 MG/ML 1 ML VIAL IV PUSH (09:32)
--- NOTE | 2025-01-18 11:26 | PM.IMCN ---
HPI Date of Consult Consult date: 01/18/25 Requesting Physician: Zion Logan MD Primary Care Provider: Mehdi Garcia MD Consult Narrative Narrative: Halima Degroot is a 79 year old female with history of hypertension, hyperlipidemia and left hip pain secondary to osteoarthritis [facility] Past Medical History Medical History (Updated 01/17/25 @ 18:43 by Vanessa Guzmán, ASH) Diverticulosis of colon without hemorrhage Sciatica of left side Vaginal atrophy Elevated fasting blood sugar Abdominal adhesions Essential (primary) hypertension Mixed hyperlipidemia Anticipatory anxiety Anxiety Normal cystoscopy Occult blood in stools Panic attacks Hematuria Fibromyalgia Surgical History Surgical History History of microdiscectomy History of cataract surgery History of appendectomy Hx of tonsillectomy History of bilateral tubal ligation H/O: hysterectomy Family History Family History Sibling Family history of kidney disease Hypertension Family history of elevated blood lipids Family history of cardiovascular disease Father Family history of cardiovascular disease Malignant neoplasm of prostate Family history of coronary artery disease Heart disease Mother Depression Sibling Cancer Heart disease Dementia Social History Social History Smoking status: Never smoker Second hand tobacco smoke exposure: Yes Alcohol intake: never Substance use: never Substance use type: does not use Do You Feel Safe in your Home?: Yes Lack of Transportation: No Lack of Food: Never True Current Housing: I Have Housing Concerned About Future Housing: No Difficulty Paying Gas/Electric Bills: No Difficulty Paying for Meds: No Currently Unemployed: No Education: Decline to Answer Difficulty w/ Childcare or Family Care: No Living arrangements: with family Additional living arrangements comments: DAUGHTER-AMIE Spiritual care concerns: No Meds Home Medications and Allergies Home Medications ?Medication ?Instructions ?Recorded ?Confirmed ?Type simvastatin 10 mg tablet 10 mg PO DAILY #90 tabs 02/09/24 01/17/25 Rx alprazolam 0.25 mg tablet 0.25 mg PO TID PRN anxiety #90 tabs 05/26/24 12/30/24 Rx sertraline 100 mg tablet 100 mg PO DAILY #90 tabs 07/30/24 01/17/25 Rx atenolol 50 mg tablet See Rx Instructions .Route 12/15/24 01/17/25 Rx .COMPLEX #180 tabs Allergies Allergy/AdvReac Type Severity Reaction Status Date / Time Sulfa (Sulfonamide Allergy Mild Rash Verified 01/17/25 07:05 Antibiotics) Vital Signs Vital Signs - 24 hr 01/17/25 11:30 01/17/25 11:45 01/17/25 12:00 Temperature Pulse Rate 74 91 83 Respiratory Rate 14 18 17 Blood Pressure 175/79 H 181/87 H 172/72 H Pulse Oximetry 100 100 97 Oxygen Delivery Simple Face Mask Room Air Room Air Oxygen Flow Rate 8 01/17/25 12:01 01/17/25 12:15 01/17/25 13:00 Temperature Pulse Rate 82 80 Respiratory Rate 13 Blood Pressure 140/69 Pulse Oximetry 98 Oxygen Delivery Room Air Room Air Oxygen Flow Rate 01/17/25 13:05 01/17/25 13:20 01/17/25 13:50 Temperature 96.3 F L 96.4 F L 96.9 F L Pulse Rate 73 73 63 Respiratory Rate 16 16 18 Blood Pressure 121/52 L 104/49 L 113/50 L Pulse Oximetry 97 99 98 Oxygen Delivery Oxygen Flow Rate 01/17/25 14:08 01/17/25 14:38 01/17/25 14:50 Temperature 97.7 F Pulse Rate 73 Respiratory Rate 18 Blood Pressure 93/56 L Pulse Oximetry 97 Oxygen Delivery Room Air Room Air Oxygen Flow Rate 01/17/25 17:38 01/17/25 17:38 01/17/25 21:08 Temperature 98.4 F Pulse Rate 66 69 Respiratory Rate 16 Blood Pressure 105/41 L 113/53 L Pulse Oximetry 97 Oxygen Delivery Oxygen Flow Rate 01/18/25 01:21 01/18/25 04:54 01/18/25 09:25 Temperature 97.8 F 98.2 F Pulse Rate 87 91 98 Respiratory Rate 16 16 Blood Pressure 123/49 L 137/57 L Pulse Oximetry 97 95 Oxygen Delivery Oxygen Flow Rate Results Labs 01/18/25 05:28 01/18/25 05:28 Labs: Short CBC 01/18/25 Range/Units 05:28 WBC 14.3 H (4.5-10.0) K/mm3 Hgb 9.8 L D (12.0-15.0) g/dL Hct 30.7 L (37.0-47.0) % Plt Count 175 (150-375) k/mm3 [facility] 01/18/25 05:28 Sodium 135 L Potassium 4.4 Chloride 106 Carbon Dioxide 23 BUN 22 H Creatinine 1.06 H Glucose 99 Calcium 8.9
--- NOTE | 2025-01-18 11:35 | P.PNIM_ITS ---
Progress Note: A&P Assessment and Plan (1) Primary osteoarthritis of left hip: Code(s): M16.12 - Unilateral primary osteoarthritis, left hip Status: Acute Assessment and Plan: Left total hip by Orthopedics on 01/17/2025 * Pain management by Orthopedics * Eliquis DVT prophylaxis 2.5 mg b.i.d. * PT/OT * Incentive spirometer * Weight-bearing status per Ortho (2) Essential (primary) hypertension: Code(s): I10 - Essential (primary) hypertension Status: Chronic Assessment and Plan: * Continued patient's atenolol * Monitor BP per unit protocol (3) Mixed hyperlipidemia: Code(s): E78.2 - Mixed hyperlipidemia Status: Chronic Assessment and Plan: * Continue patient's statin (4) Anxiety: Code(s): F41.9 - Anxiety disorder, unspecified Status: Acute Assessment and Plan: * Xanax held by Orthopedics * Continue sertraline Plan Patient followed as consult for any medical management patient with no new complaints or needs at this time likely will discharge to home following her 2nd physical therapy if pain controlled will sign off at this time if you need any further management please free to re-consult. Time Spent With Patient Time with patient: 15 - 25 minutes Subjective Date/time seen: 01/18/25 11:35 Interval history: 01/18/2025: Patient evaluated in bed just worked with physical therapy and did report some [id number] pain plan for follow-up physical therapy after lunch. Patient denied any chest pain, shortness a breath, nausea, vomiting states he only had nausea post surgery which has sided. Patient with no other complaints. Review of Systems Review of Systems: 12 systems were reviewed and are negativ e except for as per HPI. All systems reviewed & are unremarkable except as noted in HPI and below Exam Narrative: General: well appearing, appears stated age. HEENT: normocephalic, atraumatic. Mucous membranes moist Respiratory: clear to auscultation bilaterally. Cardiovascular: RRR Abdomen: Soft bowel sounds in all 4 quadrants Extremities: No cyanosis, clubbing, or edema present. Pulses are palpable 2/2. Left hip dressing clean dry intact Neuro: Alert and orientated x 4. Skin: Warm, dry, and intact Psych: pleasant, cooperative Objective Data Vital Signs Vital Signs: Vital Signs - 24 hr 01/17/25 11:45 01/17/25 12:00 01/17/25 12:01 Temperature Pulse Rate 91 83 82 Respiratory Rate 18 17 Blood Pressure 181/87 H 172/72 H Pulse Oximetry 100 97 Oxygen Delivery Room Air Room Air 01/17/25 12:15 01/17/25 13:00 01/17/25 13:05 Temperature 96.3 F L Pulse Rate 80 73 Respiratory Rate 13 16 Blood Pressure 140/69 121/52 L Pulse Oximetry 98 97 Oxygen Delivery Room Air Room Air 01/17/25 13:20 01/17/25 13:50 01/17/25 14:08 Temperature 96.4 F L 96.9 F L Pulse Rate 73 63 Respiratory Rate 16 18 Blood Pressure 104/49 L 113/50 L Pulse Oximetry 99 98 Oxygen Delivery Room Air 01/17/25 14:38 01/17/25 14:50 01/17/25 17:38 Temperature 97.7 F Pulse Rate 73 66 Respiratory Rate 18 Blood Pressure 93/56 L Pulse Oximetry 97 Oxygen Delivery Room Air 01/17/25 17:38 01/17/25 21:08 01/18/25 01:21 Temperature 98.4 F 97.8 F Pulse Rate 69 87 Respiratory Rate 16 16 Blood Pressure 105/41 L 113/53 L 123/49 L Pulse Oximetry 97 97 Oxygen Delivery 01/18/25 04:54 01/18/25 09:25 Temperature 98.2 F Pulse Rate 91 98 Respiratory Rate 16 Blood Pressure 137/57 L Pulse Oximetry 95 Oxygen Delivery Intake/Output Intake/Output: Intake & Output 01/15/25 01/16/25 01/17/25 01/18/25 23:59 23:59 23:59 23:59 Intake Total 1244 590 Output Total 200 80 Balance 1044 510 Meds/Results Medications: Active Medications Generic Name Dose Route Start Last Admin Trade Name Freq PRN Reason Stop Dose Admin Acetaminophen 650 mg 01/17/25 13:00 01/18/25 09:25 Acetaminophen 325 Mg Tablet PO 650 mg Q4HR ESTEPHANIA Administration Apixaban 2.5 mg 01/18/25 09:00 01/18/25 09:26 Apixaban 2.5 Mg Tablet PO 2.5 mg Q12HR [facility]EPH[facility]IA Administration Atenolol 0 mg 01/17/25 17:00 01/18/25 09:25 Atenolol 50 Mg Tablet PO 50 mg BID ESTEPHANIA Administration Doxycycline Hyclate 100 mg 01/17/25 21:00 01/18/25 09:26 Doxycycline Hyclate 100 Mg Tablet PO 01/30/25 20:59 100 mg Q12HR ESTEPHANIA Administration Meloxicam 7.5 mg 01/18/25 08:00 01/18/25 09:26 Meloxicam 7.5 Mg Tablet PO 7.5 mg DAILY@0800 [facility] Administration Miconazole Nitrate 1 applic 01/17/25 09:00 01/17/25 20:01 Miconazole Nitrate 2% Cream 30 Gm Tube TOPICAL 1 applic Q12HR [facility]EPHANIA Administration Morphine Sulfate 2 mg 01/17/25 12:31 01/17/25 23:41 Morphine Sulfate (*Crx) 2 Mg/Ml Inj IV PUSH 2 mg Q1H PRN Administration Pain Rated 7-10 Naloxone HCl 0.1 mg 01/17/25 12:31 Naloxone Hcl 0.4 Mg/Ml Vial IV PUSH Q2M PRN Opiate Reversal Ondansetron HCl 4 mg 01/17/25 12:31 01/17/25 14:28 Ondansetron Inj 4 Mg/2 Ml Vial IV PUSH 4 mg Q4H PRN Administration Nausea And Vomiting Oxycodone HCl 2.5 mg 01/17/25 12:31 01/18/25 05:50 Oxycodone Hcl (*Crx) 2.5 Mg Tab Ir PO 2.5 mg Q4H PRN Administration Pain Rated 4-10 Oxycodone HCl 2.5 mg 01/18/25 09:00 01/18/25 09:26 Oxycodone Hcl (*Crx) 2.5 Mg Tab Ir PO 2.5 mg Q4H ESTEPHANIA Administration Polyethylene Glycol 17 gm 01/18/25 09:00 01/18/25 09:30 Polyethylene Glycol 3350 17 Gm Powd.Pack PO Not Given QAM ESTEPHANIA Senna/Docusate Sodium 2 tab 01/17/25 17:00 01/18/25 09:25 Senna/Docusate Sodium Tablet PO 2 tab BID ESTEPHANIA Administration Sertraline HCl 100 mg 01/18/25 09:00 01/18/25 09:26 Sertraline Hcl 50 Mg Tablet PO 100 mg DAILY ESTEPH[place]IA Administration Simvastatin 10 mg 01/18/25 09:00 01/18/25 09:26 Simvastatin 10 Mg Tablet PO 10 mg DAILY ESTEPHANIA Administration Radiology Results: ITS Impressions Intraoperative X-Ray 01/18/25 08:48 IMPRESSION: 1. Fluoroscopy utilized during left total hip arthroplasty which appears well seated in near-anatomic alignment. Labs Labs: Laboratory Results - last 24 hr 01/18/25 01/18/25 05:28 07:52 WBC 14.3 H RBC 3.17 L Hgb 9.8 L D Hct 30.7 L MCV 96.8 MCH 30.9 MCHC 31.9 L RDW 13.6 Plt Count 175 MPV 10.7 H Immature Gran % (Auto) 0.6 H Neut % (Auto) 71.3 Lymph % (Auto) 18.5 [place] % (Auto) 9.4 H Eos % (Auto) 0.0 Baso % (Auto) 0.2 Lymph # (Auto) 2.65 [place] # (Auto) 1.4 H Eos # (Auto) 0.0 Baso # (Auto) 0.0 Abs Immat Gran (auto) 0.09 H Absolute Neuts (auto) 10.2 H Absolute Nucleated RBC 0.000 Nucleated RBC % 0.0 Sodium 135 L Potassium 4.4 Chloride 106 Carbon Dioxide 23 Anion Gap 6 BUN 22 H Creatinine 1.06 H Estim Creat Clear Calc 39 Estimated GFR 50 L Glucose 99 POC Capillary Glucose 109 H Calcium 8.9 Quality VTE Prophylaxis VTE prophylaxis: mechanical ordered and pharmacologic ordered -Patient's previous records reviewed on admission -ER notes reviewed in detail on admission -discussed all findings and current treatment plan with patient/Family/POA -Consultations reviewed for recommendations -Patient's disposition for safe discharge discussed with special education case manager Dictation performed by [employer] direct speech recognition software, therefore retoucher photoengraving variants and typographical errors may occur. Hospitalist MIPS Advance Care Plan I have confirmed that the patient's Advanced Care Plan is present, code status is documented, or surrogate decision maker is listed in patient medical record.: Yes Medication Reconciliation I have utilized all available resources to obtain, update and review the patients current medications (includes all prescriptions, OTC, herbals, cannabis, and nutritional supplements).: Yes The patient is not eligible for med reconciliation; the patient is in a emergent medical situation where delaying treatment would jeopardize the patients health.: No
[2025-01-18] MEDS: MICONAZOLE NITRATE 2% CREAM 30 GM TUBE 1 APPLIC TOPICAL (12:59)
[2025-01-18 14:16] VITALS: BP 133/45; PULSE 83; RESP 18; TEMP 36; O2SAT 96
--- NOTE | 2025-01-18 15:35 | PM.PNORT ---
Progress Note: A&P Assessment and Plan (1) Status post total hip replacement, left: Code(s): Z96.642 - Presence of left artificial hip joint Status: Acute Assessment and Plan: Patient is doing much better this afternoon. Her pain is nicely controlled she feels she would be safe to go home today would like to be discharged. Early this morning at 8:00 a.m. she was having a fair amount of pain in bed. Factors contributing to that would include not moving all night and sleeping supine which is not used to sleeping, having the block wore off and she has had very little narcotic over the night due to concerns of severe nausea which she suffered with last evening. She had just taken a 2.5 mg oxycodone at that time. She does have a history of severe nausea with Vicodin. I have explained her that the nausea is generally dose dependent and is also very helpful to take narcotics with some food on the stomach. An empty stomach causes increased nausea symptoms. She had no leg swelling her wound is dry and intact she has intact sensation motor function left leg. She is alert and oriented. Laboratories show hemoglobin 9.8 representing mild acute blood loss anemia. Sodium minimally decreased at 135. Creatinine 1.06 with a GFR of 50. This is very similar to her preop GFR of 54. Preop creatinine was 1.0. Patient is weight-bearing as tolerated and will be discharged today as discussed. Subjective Subjective Date/Time Seen: 01/18/25 15:35 Objective Data Vital Signs Vital Signs: Vital Signs - 24 hr 01/17/25 17:38 01/17/25 17:38 01/17/25 21:08 Temperature 36.9 C Pulse Rate 66 69 Respiratory Rate 16 Blood Pressure 105/41 L 113/53 L Pulse Oximetry 97 Oxygen Delivery 01/18/25 01:21 01/18/25 04:54 01/18/25 09:25 Temperature 36.6 C 36.8 C Pulse Rate 87 91 98 Respiratory Rate 16 16 Blood Pressure 123/49 L 137/57 L Pulse Oximetry 97 95 Oxygen Delivery 01/18/25 09:30 01/18/25 14:16 Temperature 36.0 C L Pulse Rate 98 83 Respiratory Rate 18 Blood Pressure 133/45 L Pulse Oximetry 96 96 Oxygen Delivery Room Air Intake/Output Intake/Output: Intake & Output 01/15/25 01/16/25 01/17/2516/25 23:59 23:59 23:59 23:59 Intake Total 9314 830 Output Total 200 80 Balance 1044 750 Meds/Results Medications: Active Medications Generic Name Dose Route Start Last Admin Trade Name Freq PRN Reason Stop Dose Admin Acetaminophen 650 mg 01/17/25 13:00 01/18/25 12:59 Acetaminophen 325 Mg Tablet PO 650 mg Q4HR ESTEPHANIA Administration Apixaban 2.5 mg 01/18/25 09:00 01/18/25 09:26 Apixaban 2.5 Mg Tablet PO 2.5 mg Q12HR [place]EPH[place] Administration Atenolol 0 mg 01/17/25 17:00 01/18/25 09:25 Atenolol 50 Mg Tablet PO 50 mg BID ESTEPH[place]IA Administration Doxycycline Hyclate 100 mg 01/17/25 21:00 01/18/25 09:26 Doxycycline Hyclate 100 Mg Tablet PO 01/30/25 20:59 100 mg Q12HR [facility]EPH[place]IA Administration Meloxicam 7.5 mg 01/18/25 08:00 01/18/25 09:26 Meloxicam 7.5 Mg Tablet PO 7.5 mg DAILY@0800 [facility] Administration Miconazole Nitrate 1 applic 01/17/25 09:00 01/18/25 12:59 Miconazole Nitrate 2% Cream 30 Gm Tube TOPICAL 1 applic Q12HR [facility] Administration Morphine Sulfate 2 mg 01/17/25 12:31 01/17/25 23:41 Morphine Sulfate (*Crx) 2 Mg/Ml Inj IV PUSH 2 mg Q1H PRN Administration Pain Rated 7-10 Naloxone HCl 0.1 mg 01/17/25 12:31 Naloxone Hcl 0.4 Mg/Ml Vial IV PUSH Q2M PRN Opiate Reversal Ondansetron HCl 4 mg 01/17/25 12:31 01/17/25 14:28 Ondansetron Inj 4 Mg/2 Ml Vial IV PUSH 4 mg Q4H PRN Administration Nausea And Vomiting Oxycodone HCl 2.5 mg 01/17/25 12:31 01/18/25 05:50 Oxycodone Hcl (*Crx) 2.5 Mg Tab Ir PO 2.5 mg Q4H PRN Administration Pain Rated 4-10 Oxycodone HCl 2.5 mg 01/18/25 09:00 01/18/25 12:59 Oxycodone Hcl (*Crx) 2.5 Mg Tab Ir PO 2.5 mg Q4H [facility]EPH[place]IA Administration Polyethylene Glycol 17 gm 01/18/25 09:00 01/18/25 09:30 Polyethylene Glycol 3350 17 Gm Powd.Pack PO Not Given QAM [facility]EPH[place] Senna/Docusate Sodium 2 tab 01/17/25 17:00 01/18/25 09:25 Senna/Docusate Sodium Tablet PO 2 tab BID [facility]EPH[place] Administration Sertraline HCl 100 mg 01/18/25 09:00 01/18/25 09:26 Sertraline Hcl 50 Mg Tablet PO 100 mg DAILY [facility] Administration Simvastatin 10 mg 01/18/25 09:00 01/18/25 09:26 Simvastatin 10 Mg Tablet PO 10 mg DAILY ESTEPH[place]IA Administration Radiology Results: ITS Impressions Intraoperative X-Ray 01/18/25 08:48 IMPRESSION: 1. Fluoroscopy utilized during left total hip arthroplasty which appears well seated in near-anatomic alignment. Labs Labs: Laboratory Results - last 24 hr 01/18/25 01/18/25 05:28 07:52 WBC 14.3 H RBC 3.17 L Hgb 9.8 L D Hct 30.7 L MCV 96.8 MCH 30.9 MCHC 31.9 L RDW 13.6 Plt Count 175 MPV 10.7 H Immature Gran % (Auto) 0.6 H Neut % (Auto) 71.3 Lymph % (Auto) 18.5 [place] % (Auto) 9.4 H Eos % (Auto) 0.0 Baso % (Auto) 0.2 Lymph # (Auto) 2.65 [place] # (Auto) 1.4 H Eos # (Auto) 0.0 Baso # (Auto) 0.0 Abs Immat Gran (auto) 0.09 H Absolute Neuts (auto) 10.2 H Absolute Nucleated RBC 0.000 Nucleated RBC % 0.0 Sodium 135 L Potassium 4.4 Chloride 106 Carbon Dioxide 23 Anion Gap 6 BUN 22 H Creatinine 1.06 H Estim Creat Clear Calc 39 Estimated GFR 50 L Glucose 99 POC Capillary Glucose 109 H Calcium 8.9
== END 2025-01-18 17:10 | disposition home or self-care (01) ==
LOC: ANHSURGERY 06:01 → ANH3MEDSUR 12:41
PROVIDERS: PCP Family Medicine; Visit Provider Orthopaedic Surgery
PROC: (CPT 27130; principal; 2025-01-17 07:30)
DX: M16.12 Unilateral primary osteoarthritis, left hip (principal); M25.752 Osteophyte, left hip; I10 Essential (primary) hypertension; E78.2 Mixed hyperlipidemia; F41.8 Other specified anxiety disorders; M79.7 Fibromyalgia; F41.0 Panic disorder [episodic paroxysmal anxiety]; Z98.890 Other specified postprocedural states; Z98.51 Tubal ligation status; Z87.19 Personal history of other diseases of the digestive system; Z80.42 Family history of malignant neoplasm of prostate; Z82.49 Family history of ischemic heart disease and other diseases of the circulatory system
CPT/HCPCS: 27130; 36415; 73501; 80048; 82948; 85025; 86850; 86900; 86901; 97110; 97116; 97161; 97166; 97530; 97535; 99199; J0690; A9270; C1776; J0166; J0360; J1100; J1171; J1200; J1741; J1885; J2003; J2270; J2371; J2405; J2704; J2795; J3010; J3373; J7030; J7050; J7120

== ENCOUNTER 2025-03-11 15:23 | Emergency (ER) | payer MEDICARE, MEDICAID, SELFPAY ==
--- OUTSIDE RECORDS SUMMARY | 2003-08-10 07:15 | XMS_ITS | Continuity of Care Document ---
Author Organization [facility] Address [address] [place] [address] Phone Care Team Providers Care Outreach Specialist Name Role Phone Mckeon OD, Jose Unavailable Unavailable Advance Directives Directive Yes / No Effective Date File Name No Information Encounters Encounter Description Practice Location Reason(s) For Visit Diagnoses Date Provider Providers Copied on Encounter [facility], [address], [place], [place], [id number], [place] tel:[phone] SEC [facility] No Information Apr-0 7-200 4 Mckeon OD Jose. [address] [facility] , [address], [place], [address], [place]. tel:[phone] Family History Family Member Type Diagnosis Age At Onset No Information Payers Payer name Insurance type Covered democrat ID Authoriza tion(s) [employer] SOI CI [id number] Social History Type Description Quantity Date Captured Comments Sex Female Smoking Status No Information Chief Complaint And Reason For Visit No Information Reason For Referral Reason For Referral No Information History Of Present Illness Encounter Date Complaint History Of Prese nt Illness No Information Functional Status Date Functional Assessmen t No Information Instructions Date Instruction Additional Infor mation No Information Assessments Type Assessment Date No Information Patient Care Teams Name Effective Dates (start - stop) Status Members No Information
--- NOTE | ~2025-03-11 | CT_ITS ---
EXAMINATION: CT abdomen pelvis w con DATE: 03/11/2025 19:10 INDICATION: Left lower quadrant pain. Recent constipation. TECHNIQUE: Computed tomography (CT) of the abdomen and pelvis was performed with 100 cc Omnipaque 350 intravenous contrast. The dose-length product was 340.79 mGy-cm. Automated exposure control and iterative reconstruction technique were employed. COMPARISON: None. FINDINGS: Lung bases unremarkable. Heart size normal. Small hiatal hernia. No significant pleural or pericardial effusion. There is a left total hip arthroplasty. Nonobstructive bowel gas pattern. Colonic diverticulosis without evidence for diverticulitis. Status post appendectomy. Fatty infiltration of the liver. The spleen, pancreas, adrenal glands are unremarkable. There are bilateral renal cysts. There is a 3.6 cm cyst lateral aspect of the left kidney. Just lateral to this there is an intermediate density 1.3 cm mass measuring 28 Hounsfield units. IMPRESSION: 1. Intermediate density left renal mass contiguous with a cyst at the lower pole. Correlation with ultrasound recommended on nonemergent basis. 2: No acute abnormality of the abdomen or pelvis. Reviewed, dictated and finalized at location O. STRY FIRE AIDE IMPRESSION: 1. Intermediate density left renal mass contiguous with a cyst at the lower caleb e. Correlation with ultrasound recommended on nonemergent basis. 2: No acute abnormality of the abdomen or pelvis.
[2025-03-11 15:29] VITALS: BP 156/90; PULSE 86; RESP 16; TEMP 36.6; O2SAT 98
--- NOTE | 2025-03-11 17:24 | ED.ABDPAIN ---
HPI - Abdominal Pain General Chief Complaint: Abdominal Pain <KEELY Del Rio Last Filed: 03/11/25 17:33> Stated Complaint: abd pain <KEELY Del Rio Last Filed: 03/11/25 17:33> Time Seen by Provider: 03/11/25 17:25 <KEELY Del Rio Last Filed: 03/11/25 17:33> Focused HPI: Patient is a 79-year-old female who presents the ED with report of left lower abdominal pain. Patient reports having pain throughout her left upper abdomen for the past few weeks. She saw her PCP for this and discussed possible constipation/diverticulitis. Was told to take stool softeners and was Rx'd azithromycin. Patient finished the abx but c/o persistent pain. Pain worse with laying flat or laying on her side. Also reports abdominal bloating. Has been having regular BMs. Denies rectal bleeding, melena. Denies N/V, fevers, urinary complaints. Patient is 2 months post op L hip replacement by Dr. Logan. GENERAL: Well-appearing, well-nourished, and in no acute distress. HEAD: Normocephalic, atraumatic. CHEST: Clear to auscultation. ?No respiratory distress. HEART: Regular rate and rhythm.? ABD: No significant focal TTP. Normoactive BS NEURO: ?Alert and oriented x3. Patient screened in triage and initial orders placed.? ?Additional care and disposition to be based upon?diagnostic testing and treatment. <KEELY Del Rio Last Filed: 03/11/25 17:33> Source: patient <KEELY Del Rio Last Filed: 03/11/25 17:33> Mode of arrival: ambulatory <KEELY Del Rio Last Filed: 03/11/25 17:33> Limitations: no limitations <KEELY Del Rio Last Filed: 03/11/25 17:33> Related Data Allergies/Adverse Reactions: Allergies Allergy/AdvReac Type Severity Reaction Status Date / Time Sulfa (Sulfonamide Allergy Mild Rash Verified 03/11/25 15:24 Antibiotics) <Vi Boyer PA-C - Last Filed: 03/11/25 17:33> [facility] Past Medical History Medical History: Medical History Diverticulosis of colon without hemorrhage Sciatica of left side Vaginal atrophy Elevated fasting blood sugar Abdominal adhesions Essential (primary) hypertension Mixed hyperlipidemia Anticipatory anxiety Anxiety Normal cystoscopy Occult blood in stools Panic attacks Hematuria Fibromyalgia <KEELY Del Rio Last Filed: 03/11/25 17:33> Surgical History Surgical History: Surgical History History of microdiscectomy History of cataract surgery History of appendectomy Hx of tonsillectomy History of bilateral tubal ligation H/O: hysterectomy <KEELY Del Rio Last Filed: 03/11/25 17:33> Family History Family History: Family History Sibling Family history of kidney disease Hypertension Family history of elevated blood lipids Family history of cardiovascular disease Father Family history of cardiovascular disease Malignant neoplasm of prostate Family history of coronary artery disease Heart disease Mother Depression Sibling Cancer Heart disease Dementia <KEELY Del Rio Last Filed: 03/11/25 17:33> Social History Social History: Social History Second hand tobacco smoke exposure: Yes Alcohol intake: never Substance use: never Substance use type: does not use Do You Feel Safe in your Home?: Yes Lack of Transportation: No Lack of Food: Never True Current Housing: I Have Housing Concerned About Future Housing: No Difficulty Paying Gas/Electric Bills: No Difficulty Paying for Meds: No Currently Unemployed: No Education: Decline to Answer Difficulty w/ Childcare or Family Care: No Living arrangements: with family Additional living arrangements comments: DAUGHTER-AMIE Spiritual care concerns: No <KEELY Del Rio Last Filed: 03/11/25 17:33> Exam Narrative: APPEARANCE: No apparent distress. Head: atraumatic. EYES: EOMI, NOSE: Atraumatic NECK: Trachea midline RESPIRATORY: No increased rate of breathing clear to auscultation CARDIOVASCULAR: RRR, no peripheral edema ABDOMINAL: Non-distended no tenderness to palpation, no guarding or rebound MUSCULOSKELETAl: No obvious deformities NEURO: Alert. Moving 4/4 extremities SKIN:: Warm, dry. Normal color PSYCHIATRIC: Normal affect <Jhoan Nolasco MD - Last Filed: 03/11/25 20:41> Course Vital Signs Vital signs: Vital Signs Temperature 97.9 F 03/11/25 15:29 Pulse Rate 86 03/11/25 15:29 Respiratory Rate 16 03/11/25 15:29 Blood Pressure 156/90 H 03/11/25 15:29 Pulse Oximetry 98 03/11/25 15:29 Temperature 97.9 F 03/11/25 15:29 Pulse Rate 76 03/11/25 19:37 Respiratory Rate 18 03/11/25 19:37 Blood Pressure 197/89 H 03/11/25 19:37 Pulse Oximetry 100 03/11/25 19:37 <Vi Boyer PA-C - Last Filed: 03/11/25 17:33> Vital Signs Temperature 97.9 F 03/11/25 15:29 Pulse Rate 86 03/11/25 15:29 Respiratory Rate 16 03/11/25 15:29 Blood Pressure 156/90 H 03/11/25 15:29 Pulse Oximetry 98 03/11/25 15:29 Temperature 97.9 F 03/11/25 15:29 Pulse Rate 76 03/11/25 19:37 Respiratory Rate 18 03/11/25 19:37 Blood Pressure 197/89 H 03/11/25 19:37 Pulse Oximetry 100 03/11/25 19:37 <Jhoan Nolasco MD - Last Filed: 03/11/25 20:41> MDM - Abdominal Pain MDM Narrative Medical decision making narrative: MSE by JULES in triage. <Vi Boyer PA-C - Last Filed: 03/11/25 17:33> MSE by JULES in triage. -Course: 71-year-old female presenting with left lower quadrant pain. The pain is worse at night. It is positional and worse with movement and when she lays on her side. She does not have any GI symptoms such as constipation or nausea vomiting. Last bowel movement was yesterday and was normal. She is not tender on exam and canrecreate the movement/pain when she moves in certain ways. Family notes that she has been walking differently due to pain in her hip. Her laboratory studies and CT abdomen pelvis were within normal limits. Urine with some white cells and she states she has some urinary frequency. She will be covered for antibiotics. Given that the patient just had a left-sided hip replacement I suspect that this is a compensation injury of the left lower abdominal muscles. Patient will be treated with NSAIDs muscle relaxers and lidocaine patch. Patient struck to follow-up closely with her primary care physician. CT abdomen pelvis noted incidental finding on her kidney that will require an outpatient ultrasound. The patient and her family were notified of his results that will need further workup from her primary care physician. -DDX includes but is not limited to: Diverticulitis, constipation, gas pains, musculoskeletal injury, colitis, gastritis -Co-morbidities complicating care: Recent hip repair <Jhoan Nolasco MD - Last Filed: 03/11/25 20:41> Lab Data Result diagrams: 03/11/25 17:48 03/11/25 20:01 <Vi Boyer PA-C - Last Filed: 03/11/25 17:33> Labs: Lab Results 03/11/25 03/11/25 Range/Units 17:48 20:01 WBC 11.0 H (4.5-10.0) K/mm3 RBC 4.18 L (4.2-5.4) M/mm3 Hgb 12.8 D (12.0-15.0) g/dL Hct 40.3 (37.0-47.0) % MCV 96.4 (80-100) fl MCH 30.6 (26-34) pg MCHC 31.8 L (32-36) g/dl RDW 14.1 (11.5-14.5) % Plt Count 312 D (150-375) k/mm3 MPV 10.1 (7.4-10.4) fl Immature Gran % (Auto) 0.4 (0-0.5) % Neut % (Auto) 53.5 (45.5-73.1) % Lymph % (Auto) 36.9 (18.3-44.2) % Alfalfa % (Auto) 7.1 (2.6-8.5) % Eos % (Auto) 1.5 (0-4.4) % Baso % (Auto) 0.6 (0.2-1.2) % Lymph # (Auto) 4.06 H (0.9-3.2) K/mm3 Alfalfa # (Auto) 0.8 H (0.1-0.6) K/mm3 Eos # (Auto) 0.2 (0-0.3) K/mm3 Baso # (Auto) 0.1 (0.0-0.1) K/mm3 Abs Immat Gran (auto) 0.04 H (0.00-0.031) K/mm3 Absolute Neuts (auto) 5.9 (1.3-6.7) K/mm3 Absolute Nucleated RBC 0.000 (0.0-0.012) K/mm3 Nucleated RBC % 0.0 (0.0-0.2) % Sodium 139 (137-145) mmol/L Potassium 3.9 (3.4-5.0) mmol/L Chloride 104 (98-107) mmol/L Carbon Dioxide 25 (22-30) mmol/L Anion Gap 10 (4-12) mmol/L BUN 14 D (7-17) mg/dL Creatinine 0.94 1.00 (0.7-1.0) mg/dL Estim Creat Clear Calc 45 43 ml/min Estimated GFR 58 L 54 L (59 - ) Glucose 102 (65-110) mg/dL Calcium 9.9 (8.4-10.2) mg/dL Total Bilirubin 0.5 (0.2-1.3) mg/dL AST 28 (14-36) U/L ALT 13 (6-35) U/L Alkaline Phosphatase 107 (38-126) U/L Total Protein 8.7 H (6.3-8.2) g/dL Albumin 4.6 (3.5-5.1) g/dL Lipase 70 (23-300) U/L Urine Color Yellow (Yellow) Urine Appearance Clear (Clear) Urine pH 5.0 (5.0-9.0) Ur Specific Leggett 1.019 (1.001-1.035) Urine Protein 1+ H (Negative) mg/dL Urine Glucose (UA) Negative (Negative) mg/dL Urine Ketones Trace H (Negative) mg/dL Ur Blood (Man) Negative (Negative) Urine Nitrate Negative (Negative) Urine Bilirubin Negative (Negative) Urine Urobilinogen 0.2 (<2.0) mg/dL Leukocyte Esterase Rfl 2+ H (Negative) ALEA/UL Urine RBC 0-2 (0-2) /hpf Urine WBC 21-50 H (0-3) /hpf Ur Squamous Epith Cells None seen (Few) /hpf Urine Bacteria None seen /hpf Urine Casts 3-5 <Vi Boyer PA-C - Last Filed: 03/11/25 17:33> Lab Results 03/11/25 03/11/25 Range/Units 17:48 20:01 WBC 11.0 H (4.5-10.0) K/mm3 RBC 4.18 L (4.2-5.4) M/mm3 Hgb 12.8 D (12.0-15.0) g/dL Hct 40.3 (37.0-47.0) % MCV 96.4 (80-100) fl MCH 30.6 (26-34) pg MCHC 31.8 L (32-36) g/dl RDW 14.1 (11.5-14.5) % Plt Count 312 D (150-375) k/mm3 MPV 10.1 (7.4-10.4) fl Immature Gran % (Auto) 0.4 (0-0.5) % Neut % (Auto) 53.5 (45.5-73.1) % Lymph % (Auto) 36.9 (18.3-44.2) % Alfalfa % (Auto) 7.1 (2.6-8.5) % Eos % (Auto) 1.5 (0-4.4) % Baso % (Auto) 0.6 (0.2-1.2) % Lymph # (Auto) 4.06 H (0.9-3.2) K/mm3 Alfalfa # (Auto) 0.8 H (0.1-0.6) K/mm3 Eos # (Auto) 0.2 (0-0.3) K/mm3 Baso # (Auto) 0.1 (0.0-0.1) K/mm3 Abs Immat Gran (auto) 0.04 H (0.00-0.031) K/mm3 Absolute Neuts (auto) 5.9 (1.3-6.7) K/mm3 Absolute Nucleated RBC 0.000 (0.0-0.012) K/mm3 Nucleated RBC % 0.0 (0.0-0.2) % Sodium 139 (137-145) mmol/L Potassium 3.9 (3.4-5.0) mmol/L Chloride 104 (98-107) mmol/L Carbon Dioxide 25 (22-30) mmol/L Anion Gap 10 (4-12) mmol/L BUN 14 D (7-17) mg/dL Creatinine 0.94 1.00 (0.7-1.0) mg/dL Estim Creat Clear Calc 45 43 ml/min Estimated GFR 58 L 54 L (59 - ) Glucose 102 (65-110) mg/dL Calcium 9.9 (8.4-10.2) mg/dL Total Bilirubin 0.5 (0.2-1.3) mg/dL AST 28 (14-36) U/L ALT 13 (6-35) U/L Alkaline Phosphatase 107 (38-126) U/L Total Protein 8.7 H (6.3-8.2) g/dL Albumin 4.6 (3.5-5.1) g/dL Lipase 70 (23-300) U/L Urine Color Yellow (Yellow) Urine Appearance Clear (Clear) Urine pH 5.0 (5.0-9.0) Ur Specific Leggett 1.019 (1.001-1.035) Urine Protein 1+ H (Negative) mg/dL Urine Glucose (UA) Negative (Negative) mg/dL Urine Ketones Trace H (Negative) mg/dL Ur Blood (Man) Negative (Negative) Urine Nitrate Negative (Negative) Urine Bilirubin Negative (Negative) Urine Urobilinogen 0.2 (<2.0) mg/dL Leukocyte Esterase Rfl 2+ H (Negative) ALEA/UL Urine RBC 0-2 (0-2) /hpf Urine WBC 21-50 H (0-3) /hpf Ur Squamous Epith Cells None seen (Few) /hpf Urine Bacteria None seen /hpf Urine Casts 3-5 <Jhoan Nolasco MD - Last Filed: 03/11/25 20:41> Imaging Data Radiologist's impression: ITS Impressions Abdomen/Pelvis CT 03/11/25 19:15 IMPRESSION: 1. Intermediate density left renal mass contiguous with a cyst at the lower pole. Correlation with ultrasound recommended on nonemergent basis. 2: No acute abnormality of the abdomen or pelvis. <Vi Boyer PA-C - Last Filed: 03/11/25 17:33> ITS Impressions Abdomen/Pelvis CT 03/11/25 19:15 IMPRESSION: 1. Intermediate density left renal mass contiguous with a cyst at the lower pole. Correlation with ultrasound recommended on nonemergent basis. 2: No acute abnormality of the abdomen or pelvis. <Jhoan Nolasco MD - Last Filed: 03/11/25 20:41> Discharge Plan Discharge Clinical Impression: Abdominal wall strain, Acute UTI <Vi Boyer PA-C - Last Filed: 03/11/25 17:33> Patient Disposition: Home <KEELY Del Rio Last Filed: 03/11/25 17:33> Condition: Stable <KEELY Del Rio Last Filed: 03/11/25 17:33> Instructions: Antibiotic Form, Abdominal Pain (ED) <KEELY Del Rio Last Filed: 03/11/25 17:33> Additional Instructions: He was seen emergency department for left lower quadrant pain. I suspect this is a strain of her abdominal muscles as he compensate for your hip injury. Please use tylenol, muscle relaxers and lidocaine patches for pain. However if her condition worsens, your pain is becoming worse or you develop new symptoms I would like you to come back to the ER for re-evaluation. Please otherwise please follow-up your primary care physician in next 3-[address] abdomen pelvis showed a mass on her kidney that will need further workup [facility] your primary care physician. <Vi Boyer PA-C - Last Filed: 03/11/25 17:33> Patient Language: Mongolian <KEELY Del Rio Last Filed: 03/11/25 17:33> Prescriptions: New acetaminophen 500 mg tablet 1,000 mg PO TID PRN (Reason: vangie) 7 Days Qty: 42 0RF methocarbamol 750 mg tablet 1,500 mg PO TID 7 Days Qty: 42 0RF lidocaine 5 % adhesive patch,medicated 1 patch topical DAILY Qty: 15 0RF Rx Instructions: leave on most painful area for up to 12 hrs cephalexin 500 mg capsule 500 mg PO Q12H Qty: 14 0RF No Action azithromycin 250 mg tablet See Rx Instructions PO .COMPLEX Qty: 6 0RF Rx Instructions: For 250 mg dose pack: take 500 mg today (day 1), then 250 mg for 4 days (days 2-5) PO acetaminophen [Tylenol Extra Strength] 500 mg tablet 500 mg PO Q4H Qty: 100 0RF Eliquis 2.5 mg Tablet 2.5 mg PO Q12HR Qty: 70 0RF meloxicam 7.5 mg tablet 7.5 mg PO DAILY Qty: 7 0RF alprazolam 0.25 mg tablet 0.25 mg PO TID PRN (Reason: anxiety) Qty: 90 3RF atenolol 50 mg tablet See Rx Instructions .ROUTE .COMPLEX Qty: 180 1RF Dose Instruction: TAKE 1 TABLET BY MOUTH TWICE A DAY Rx Instructions: TAKE 1 TABLET BY MOUTH TWICE A DAY simvastatin 10 mg tablet 10 mg PO DAILY Qty: 90 1RF Patient Comments: HS sertraline 100 mg tablet 100 mg PO DAILY Qty: 90 1RF Patient Comments: QAM ondansetron 4 mg tablet,disintegrating 4 mg PO Q6H PRN (Reason: nausea and vomiting) Qty: 30 0RF <Vi Boyer PA-C - Last Filed: 03/11/25 17:33> Follow-up/Referrals: Sarai Garcia MD [Physician, Family Practice] - 1 Week Referral Note: Lower abdominal pain Incidental kidney mass Clinical Impression: Acute UTI; Abdominal wall strain <Vi Boyer PA-C - Last Filed: 03/11/25 17:33>
--- NOTE | 2025-03-11 17:50 | PC.NURSE ---
CT aware of green top & iv
[2025-03-11 17:56] LABS: Hematocrit 40.3 % (37.0-47.0); Hemoglobin 12.8 g/dL (12.0-15.0); Immature Granulocyte Percent A 0.4 % (0-0.5); Lymphocytes Absolute Auto 4.06 K/mm3 (0.9-3.2); Mean Corpuscular HGB Conc 31.8 g/dl (32-36); Mean Corpuscular Hemoglobin 30.6 pg (26-34); Mean Corpuscular Volume 96.4 fl (80-100); Nucleated Red Blood Cells Absolute Auto 0.000 K/mm3 (0.0-0.012); Nucleated Red Blood Cells Perc 0.0 % (0.0-0.2); Platelet Count Result 312 k/mm3 (150-375); Red Blood Count 4.18 M/mm3 (4.2-5.4); White Blood Count 11.0 K/mm3 (4.5-10.0)
[2025-03-11 17:59] LABS: Add Urine Microscopic? YES; Appearance Urine Clear (Clear); Glucose Urine UA Negative (Negative); Leukocyte Esterase Ur 2+ LEU/UL (Negative); Nitrate Urine Negative (Negative); Specific Grav Ur 1.019 (1.001-1.035)
[2025-03-11 18:08] LABS: Alanine Aminotransferase 13 U/L (6-35); Albumin Level 4.6 g/dL (3.5-5.1); Alkaline Phosphatase 107 U/L (38-126); Anion Gap 10 mmol/L (4-12); Aspartate Amino Transferase 28 U/L (14-36); Bilirubin,Total 0.5 mg/dL (0.2-1.3); Blood Urea Nitrogen 14 mg/dL (7-17); Calcium 9.9 mg/dL (8.4-10.2); Carbon Dioxide 25 mmol/L (22-30); Chloride 104 mmol/L (98-107); Estimated CRCL calculation 45 ml/min; Estimated Glomerular Filt Rate 58; Glucose 102 mg/dL (65-110); Lipase 70 U/L (23-300); Potassium 3.9 mmol/L (3.4-5.0); Sodium 139 mmol/L (137-145); Total Protein 8.7 g/dL (6.3-8.2)
[2025-03-11 18:22] VITALS: BP 200/84; PULSE 66; RESP 18; O2SAT 99
[2025-03-11 19:03] LABS: Estimated CRCL calculation 43 ml/min; Estimated Glomerular Filt Rate 54
--- NOTE | 2025-03-11 19:18 | PC.NURSE ---
Report received from SALLY Rousseau. Assumed care of patient at this time.
[2025-03-11 19:37] VITALS: BP 197/89; PULSE 76; RESP 18; O2SAT 100
[2025-03-11] MEDS: LIDOCAINE 5% PATCH 1 PATCH TRANSDERM (20:23)
[2025-03-11] MEDS: ACETAMINOPHEN 500 MG TABLET 1000 MG PO (20:23)
[2025-03-11] MEDS: IBUPROFEN 400 MG TABLET 800 MG PO (20:28)
[2025-03-11 20:50] VITALS: BP 190/82; PULSE 68; RESP 18; O2SAT 100
[2025-03-11 21:11] VITALS: BP 128/82
== END 2025-03-11 21:13 | disposition home or self-care (01) ==
PROVIDERS: Physician Assistant; Emergency Provider Emergency Medicine; PCP Family Medicine
DX: S39.011A Strain of muscle, fascia and tendon of abdomen, initial encounter (principal); N39.0 Urinary tract infection, site not specified; I10 Essential (primary) hypertension; E78.2 Mixed hyperlipidemia; M79.7 Fibromyalgia; F41.9 Anxiety disorder, unspecified; Z96.642 Presence of left artificial hip joint; Z98.49 Cataract extraction status, unspecified eye; Z90.710 Acquired absence of both cervix and uterus; Z77.22 Contact with and (suspected) exposure to environmental tobacco smoke (acute) (chronic); X50.9XXA Other and unspecified overexertion or strenuous movements or postures, initial encounter
CPT/HCPCS: 36415; 74177; 80053; 81001; 83690; 85025; 87086; 99284; A9270; Q9967

== ENCOUNTER 2025-04-05 14:51 | Outpatient (CLI) | payer MEDICARE, MEDICAID, SELFPAY ==
--- NOTE | ~2025-04-05 | US_ITS ---
US renal BI CLINICAL INDICATION:Cyst on left kidney found on CT in ER . COMPARISON: None. FINDINGS: The right kidney measures 9.6 x 4.9 x 4.9 cm. The left kidney measures 10 x 5 x 4.8 cm. Renal contour and echotexture are unremarkable. Multiple cysts are noted largest in the right kidney measures 4.3 x 4.1 x 4.4 cm. Largest in the left kidney measures 3 x 2.9 x 3.8 cm. .There is no hydro nephrosis. The bladder is unremarkable. Incidentally noted are gallstones. IMPRESSION: No hydronephrosis is evident. Normal appearing bladder. Bilateral renal cysts. Cholelithiasis. Reviewed, dictated and finalized at location S. AGE LINER
== END 2025-04-05 14:52 | disposition home or self-care (01) ==
PROVIDERS: PCP Family Medicine; Visit Provider Student in an Organized Health Care Education/Training Program
DX: N28.1 Cyst of kidney, acquired (principal); K80.20 Calculus of gallbladder without cholecystitis without obstruction
CPT/HCPCS: 76770

== ENCOUNTER 2025-04-21 14:30 | Emergency (ER) | payer MEDICARE, MEDICAID, SELFPAY ==
--- NOTE | ~2025-04-21 | CT_ITS ---
EXAMINATION: CT abdomen pelvis w con DATE: 04/21/2025 18:01 INDICATION: Left lower quadrant abdominal pain TECHNIQUE: Computed tomography (CT) of the abdomen and pelvis was performed with 100 mL Omnipaque-350 intravenous contrast. Automated exposure control and iterative reconstruction technique were employed. The dose-length product was 411.47 mGy-cm. COMPARISON: CT dated 03/11/2025 FINDINGS: Mild bibasilar atelectasis in bilateral lower lobes. Heart size is normal. Atherosclerotic coronary artery calcific lesion. No pericardial or pleural effusion. Liver, gallbladder, spleen, pancreas and bilateral adrenal glands are normal. There are several bilateral renal cysts the largest on the right measuring 5.1 cm. Status post appendectomy with suture line along the tip the cecum and a few adjacent surgical clips. Moderate amount of colonic stool predominantly in the sigmoid colon. Mild diverticulosis with sigmoid colon predominance without adjacent from trace stranding to suggest diverticulitis. No bowel obstruction. Bladder is normal. The uterus is not identified and has likely been surgically resected. No free intraperitoneal gas or fluid. No pathologically enlarged abdominal or pelvic lymphadenopathy. Tiny fat-containing umbilical hernia. Severe lower lumbar spondylosis. Left total hip arthroplasty. Moderate to severe right hip osteoarthritis. IMPRESSION: 1. No acute intra-abdominal/pelvic process. Reviewed, dictated and finalized at location A. [employer]
[2025-04-21 14:32] VITALS: BP 151/68; PULSE 72; RESP 16; TEMP 36.7; O2SAT 100
--- OUTSIDE RECORDS SUMMARY | 2025-04-21 15:34 | XMS_ITS | Patient Health Record ---
Author Organization [facility] , Address [address] [place] [address] Care Team Providers Care Marketing Communications Manager Name Role Phone Mehid Garcia MD Primary Care Provider Mehdi Morgan Unavailable [phone] Zion Logan Unavailable Unavailable Allergies No Known Allergies Reason For Referral No Information Medications Medication SIG (Take, Route, Fr equency, Duration) Notes Start Date End Date Status Atenolol Active ALPRAZolam Active Simvastatin Active Sertraline HCl Activ e Social History Section Notes: She is a non-smoker. She does not drink alcohol. She denies h/o drug/chemical abuse. She uses a cane to ambulate. She is not . She lives at home with someone who can help her. She has achieved a 9th grade education. She is a homemaker. General state of health is excellent. She is a non-smoker. She does not drink alcohol. She denies h/o drug/chemical abuse. She uses a cane to ambulate. She is not . She lives at home with someone who can help her. She has achieved a 9th grade education. She is a homemaker. General state of health is excellent. Problems Problem Type SNOMED Code ICD Code Onset Dates Problem Status W/U Status Risk Notes Problem Lumbosacral spondylosis without myelopathy (83413365) Facet degeneration of lumbar region (M47.816) Active confirmed Problem Displacement of lumbar intervertebral disc without myelopathy (34789883) Lumbar herniated disc (M51.26) Active confirmed Problem Degenerative disc disease (00240734) DDD (degenerative disc disease), lumbar (M51.36) Active confirmed Problem Degeneration of cervical intervertebral disc (87591527) Other cervical disc degeneration at C5-C6 level (M50.322) Active confirmed Problem Degeneration of cervical intervertebral disc (40611414) Other cervical disc degeneration at C6-C7 level (M50.323) Active confirmed Plan Of Treatment No Information Insurance Providers Payer Name Payer Address Payer Phone Subscriber Number Group Number Insured Name Patient Relationship to Insured Coverage Start Date Coverage End Date Medicare [place] [address] [address] [place] [phone] [id number] Halima Degroot Self - patient is the insured Medical (General) History Medical History History ICD Code HTN 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
--- NOTE | 2025-04-21 15:53 | ED.ABDPAIN ---
HPI - Abdominal Pain General Chief Complaint: Abdominal Pain Stated Complaint: abd pain Time Seen by Provider: 04/21/25 15:53 Focused HPI: This is a 79 year old female that presents to the ER for left lower abdominal pain. Ongoing over the last couple of weeks. Denies fever, vomiting, diarrhea, dysuria, hematuria. GENERAL: Well-appearing, well-nourished, and in no acute distress. HEAD: Normocephalic, atraumatic. CHEST: Clear to auscultation. ?No respiratory distress. HEART: Regular rate and rhythm.? NEURO: ?Alert and oriented x3. Patient screened in triage and initial orders placed.? ?Additional care and disposition to be based upon?diagnostic testing and treatment. Related Data Allergies Allergy/AdvReac Type Severity Reaction Status Date / Time Sulfa (Sulfonamide Allergy Mild Rash Verified 04/21/25 17:40 Antibiotics) Review of Systems Review of Systems: All systems reviewed & are unremarkable except as noted in HPI and below PMFSH Past Medical History Medical History Diverticulosis of colon without hemorrhage Sciatica of left side Vaginal atrophy Elevated fasting blood sugar Abdominal adhesions Essential (primary) hypertension Mixed hyperlipidemia Anticipatory anxiety Anxiety Normal cystoscopy Occult blood in stools Panic attacks Hematuria Fibromyalgia Surgical History Surgical History History of microdiscectomy History of cataract surgery History of appendectomy Hx of tonsillectomy History of bilateral tubal ligation H/O: hysterectomy Family History Family History Sibling Family history of kidney disease Hypertension Family history of elevated blood lipids Family history of cardiovascular disease Father Family history of cardiovascular disease Malignant neoplasm of prostate Family history of coronary artery disease Heart disease Mother Depression Sibling Cancer Heart disease Dementia Social History Social History Smoking status: Never smoker Second hand tobacco smoke exposure: Yes Alcohol intake: never Substance use: never Substance use type: does not use Lack of Transportation: No Lack of Food: Never True Current Housing: I Have Housing Concerned About Future Housing: No Difficulty Paying Gas/Electric Bills: No Difficulty Paying for Meds: No Currently Unemployed: No Education: Decline to Answer Difficulty w/ Childcare or Family Care: No Living arrangements: with family Additional living arrangements comments: DAUGHTER-AMIE Spiritual care concerns: No Exam Narrative: GENERAL: Well-appearing, well-nourished, and in no acute distress. HEAD: Normocephalic, atraumatic. EYES: EOMI. CHEST: Clear to auscultation. No respiratory distress. No wheezes rales or rhonchi HEART: Regular rate and rhythm. No murmur heard. Normal peripheral pulses. ABDOMEN: Soft, nondistended, normal active bowel sounds. Tender to palpation in the left lower quadrant, without guarding EXTREMITIES: Normal range of motion. No edema. SKIN: Warm, dry, no rash. NEURO: No focal deficits. Alert and oriented x3. PSYCH: Normal mood and affect Course Vital Signs Vital signs: Vital Signs Temperature 98.1 F 04/21/25 14:32 Pulse Rate 72 04/21/25 14:32 Respiratory Rate 16 04/21/25 14:32 Blood Pressure 151/68 H 04/21/25 14:32 Pulse Oximetry 100 04/21/25 14:32 Temperature 98.1 F 04/21/25 14:32 Pulse Rate 72 04/21/25 14:32 Respiratory Rate 16 04/21/25 14:32 Blood Pressure 151/68 H 04/21/25 14:32 Pulse Oximetry 100 04/21/25 14:32 [facility] Narrative Medical decision making narrative: Patient presents the emergency department for left lower quadrant abdominal pain. Ongoing over the last couple of weeks. She is afebrile and nontoxic appearing. Her vitals are stable. Cbc without leukocytosis. Metabolic panel with mild elevation in creatinine to 1.27, patient hydrated with IV fluids. UA with 6-10 white blood cells. Patient does not endorse any urinary symptoms at this time. Will send for culture. CT abdomen pelvis without acute findings. Patient and family updated on workup. Will follow up with PCP for further evaluation. Family wondering if her pain is maybe more musculoskeletal, will send muscle relaxer as needed Differential Diagnosis Differential Diagnosis: diverticulitis, UTI Medical Records I have reviewed the following patient records and this information was taken into consideration when formulating the assessment and plan.: previous clinic visits Lab Data [facility] Lab Attestation statement: I personally reviewed the patient's lab results. 04/21/25 17:20 04/21/25 17:20 Labs: Lab Results 04/21/25 Range/Units 17:20 WBC 8.9 (4.5-10.0) K/mm3 RBC 4.15 L (4.2-5.4) M/mm3 Hgb 13.0 (12.0-15.0) g/dL Hct 40.0 (37.0-47.0) % MCV 96.4 (80-100) fl MCH 31.3 (26-34) pg MCHC 32.5 (32-36) g/dl RDW 13.9 (11.5-14.5) % Plt Count 238 (150-375) k/mm3 MPV 10.5 H (7.4-10.4) fl Immature Gran % (Auto) 0.5 (0-0.5) % Neut % (Auto) 48.5 (45.5-73.1) % Lymph % (Auto) 41.7 (18.3-44.2) % Mobile % (Auto) 7.2 (2.6-8.5) % Eos % (Auto) 1.4 (0-4.4) % Baso % (Auto) 0.7 (0.2-1.2) % Lymph # (Auto) 3.70 H (0.9-3.2) K/mm3 Mobile # (Auto) 0.6 (0.1-0.6) K/mm3 Eos # (Auto) 0.1 (0-0.3) K/mm3 Baso # (Auto) 0.1 (0.0-0.1) K/mm3 Abs Immat Gran (auto) 0.04 H (0.00-0.031) K/mm3 Absolute Neuts (auto) 4.3 (1.3-6.7) K/mm3 Absolute Nucleated RBC 0.000 (0.0-0.012) K/mm3 Nucleated RBC % 0.0 (0.0-0.2) % Sodium 138 (137-145) mmol/L Potassium 4.3 (3.4-5.0) mmol/L Chloride 104 (98-107) mmol/L Carbon Dioxide 27 (22-30) mmol/L Anion Gap 7 (4-12) mmol/L BUN 26 H D (7-17) mg/dL Creatinine 1.27 H (0.7-1.0) mg/dL Estim Creat Clear Calc 33 ml/min Estimated GFR 41 L (59 - ) Glucose 103 (65-110) mg/dL Calcium 9.7 (8.4-10.2) mg/dL Total Bilirubin 0.4 (0.2-1.3) mg/dL AST 31 (14-36) U/L ALT 13 (6-35) U/L Alkaline Phosphatase 98 (38-126) U/L Total Protein 8.0 (6.3-8.2) g/dL Albumin 4.3 (3.5-5.1) g/dL Lipase 106 (23-300) U/L Urine Color Yellow (Yellow) Urine Appearance Clear (Clear) Urine pH 5.5 (5.0-9.0) Ur Specific [place] 1.020 (1.001-1.035) Urine Protein Negative (Negative) mg/dL Urine Glucose (UA) Negative (Negative) mg/dL Urine Ketones Trace H (Negative) mg/dL Ur Blood (Man) Negative (Negative) Urine Nitrate Negative (Negative) Urine Bilirubin Negative (Negative) Urine Urobilinogen 0.2 (<2.0) mg/dL Leukocyte Esterase Rfl 2+ H (Negative) ALEA/UL Urine RBC 0-2 (0-2) /hpf Urine WBC 6-10 H (0-3) /hpf Ur Squamous Epith Cells None seen (Few) /hpf Urine Bacteria None seen /hpf Urine Casts 0-2 Imaging Data Radiologist's impression: ITS Impressions Abdomen/Pelvis CT 04/21/25 18:17 IMPRESSION: 1. No acute intra-abdominal/pelvic process. Critical Care Time Critical Care Time Critical Care Time: No Discharge Plan Discharge Clinical Impression: LLQ abdominal pain, Abnormal urinalysis Patient Disposition: Home Condition: Stable Instructions: Abdominal Pain (ED) Additional Instructions: Return to the ER if you experience fever, abdominal pain with nausea and vomiting, you are unable to keep down liquids or solids, blood in the stool, pain or burning with urination, blood in the urine or any other symptoms that are concerning to you Remain well hydrated. Over the counter pain medication as needed. Muscle relaxer as needed for pain. This medication may make you sleepy, take caution if you take it Follow up with your primary care doctor Patient Language: [place] Island[place] Prescriptions: New cyclobenzaprine 10 mg tablet 10 mg PO BID PRN (Reason: muscle spasm) Qty: 10 0RF No Action cephalexin 500 mg capsule 500 mg PO Q12H Qty: 28 0RF acetaminophen 500 mg tablet 1,000 mg PO TID PRN (Reason: vangie) 7 Days Qty: 42 0RF methocarbamol 750 mg tablet 1,500 mg PO TID 7 Days Qty: 42 0RF lidocaine 5 % adhesive patch,medicated 1 patch topical DAILY Qty: 15 0RF Rx Instructions: leave on most painful area for up to 12 hrs acetaminophen [Tylenol Extra Strength] 500 mg tablet 500 mg PO Q4H Qty: 100 0RF meloxicam 7.5 mg tablet 7.5 mg PO DAILY Qty: 7 0RF alprazolam 0.25 mg tablet 0.25 mg PO TID PRN (Reason: anxiety) Qty: 90 3RF atenolol 50 mg tablet See Rx Instructions .ROUTE .COMPLEX Qty: 180 1RF Dose Instruction: TAKE 1 TABLET BY MOUTH TWICE A DAY Rx Instructions: TAKE 1 TABLET BY MOUTH TWICE A DAY simvastatin 10 mg tablet 10 mg PO DAILY Qty: 90 1RF Patient Comments: HS sertraline 100 mg tablet 100 mg PO DAILY Qty: 90 1RF Patient Comments: QAM ondansetron 4 mg tablet,disintegrating 4 mg PO Q6H PRN (Reason: nausea and vomiting) Qty: 30 0RF Follow-up/Referrals: Mehdi Garcia MD [Primary Care Provider, Family Practice]
[2025-04-21 17:28] LABS: Hematocrit 40.0 % (37.0-47.0); Hemoglobin 13.0 g/dL (12.0-15.0); Immature Granulocyte Percent A 0.5 % (0-0.5); Lymphocytes Absolute Auto 3.70 K/mm3 (0.9-3.2); Mean Corpuscular HGB Conc 32.5 g/dl (32-36); Mean Corpuscular Hemoglobin 31.3 pg (26-34); Mean Corpuscular Volume 96.4 fl (80-100); Nucleated Red Blood Cells Absolute Auto 0.000 K/mm3 (0.0-0.012); Nucleated Red Blood Cells Perc 0.0 % (0.0-0.2); Platelet Count Result 238 k/mm3 (150-375); Red Blood Count 4.15 M/mm3 (4.2-5.4); White Blood Count 8.9 K/mm3 (4.5-10.0)
[2025-04-21 17:34] LABS: Add Urine Microscopic? YES; Appearance Urine Clear (Clear); Glucose Urine UA Negative (Negative); Leukocyte Esterase Ur 2+ LEU/UL (Negative); Nitrate Urine Negative (Negative); Non Pathogenic Casts 0-2; Specific Grav Ur 1.020 (1.001-1.035)
[2025-04-21 17:38] LABS: Alanine Aminotransferase 13 U/L (6-35); Albumin Level 4.3 g/dL (3.5-5.1); Alkaline Phosphatase 98 U/L (38-126); Anion Gap 7 mmol/L (4-12); Aspartate Amino Transferase 31 U/L (14-36); Bilirubin,Total 0.4 mg/dL (0.2-1.3); Blood Urea Nitrogen 26 mg/dL (7-17); Calcium 9.7 mg/dL (8.4-10.2); Carbon Dioxide 27 mmol/L (22-30); Chloride 104 mmol/L (98-107); Estimated CRCL calculation 33 ml/min; Estimated Glomerular Filt Rate 41; Glucose 103 mg/dL (65-110); Lipase 106 U/L (23-300); Potassium 4.3 mmol/L (3.4-5.0); Sodium 138 mmol/L (137-145); Total Protein 8.0 g/dL (6.3-8.2)
[2025-04-21] MEDS: SODIUM CHLORIDE 0.9% IV 500 ML 999 ML IV CONT (18:15)
[2025-04-21 18:59] VITALS: BP 152/78; PULSE 70; RESP 20; TEMP 36.6; O2SAT 100
== END 2025-04-21 19:00 | disposition home or self-care (01) ==
PROVIDERS: Emergency Provider Physician Assistant; PCP Family Medicine
DX: R10.32 Left lower quadrant pain (principal); R82.998 Other abnormal findings in urine; I10 Essential (primary) hypertension; E78.2 Mixed hyperlipidemia; M79.7 Fibromyalgia; F41.9 Anxiety disorder, unspecified; Z98.49 Cataract extraction status, unspecified eye; Z90.710 Acquired absence of both cervix and uterus; Z77.22 Contact with and (suspected) exposure to environmental tobacco smoke (acute) (chronic); Z79.899 Other long term (current) drug therapy
CPT/HCPCS: 36415; 74177; 80053; 81001; 83690; 85025; 87086; 96360; 99284; J7040; Q9967